=== PATIENT | female | born 1940 | race Caucasian/White ===

== ENCOUNTER → 2017-01-14 | Outpatient (REF) | payer MEDICARE ==
[2017-01-14 11:41] LABS: VITAMIN B12 LEVEL 563 PG/ML (247-911)
[2017-01-14 11:42] LABS: ALBUMIN 3.6 GM/DL (3.2-5.2); ALBUMIN/GLOBULIN RATIO 1.06 (1.00-1.93); ALKALINE PHOSPHATASE 64 U/L (45-117); ALT/SGPT 44 U/L (12-78); ANION GAP 6 MEQ/L (8-16); AST/SGOT 33 U/L (15-37); BILIRUBIN,TOTAL 0.5 MG/DL (0.2-1.0); BLOOD UREA NITROGEN 17 MG/DL (7-18); CALCIUM LEVEL 9.7 MG/DL (8.8-10.2); CARBON DIOXIDE LEVEL 31 MEQ/L (21-32); CHLORIDE LEVEL 104 MEQ/L (98-107); CHOLESTEROL LEVEL 194 MG/DL (<200); CREATININE FOR GFR 0.71 MG/DL (0.55-1.02); GLOMERULAR FILTRATION RATE > 60.0 (>39); GLUCOSE, FASTING 81 MG/DL (83-110); POTASSIUM SERUM 4.6 MEQ/L (3.5-5.1); SODIUM LEVEL 141 MEQ/L (136-145); TRIGLYCERIDES LEVEL 74 MG/DL (<150)
[2017-01-14 14:25] LABS: PRETREATED FOLATE FOR RBCFOL 15.9 NG/ML
== END ==
LOC: M SFHCPLAZ 08:59
PROVIDERS: ATTEND Family Medicine
DX: E78.5 Hyperlipidemia, unspecified (principal); E55.9 Vitamin D deficiency, unspecified; D75.89 Other specified diseases of blood and blood-forming organs

== ENCOUNTER → 2017-01-24 | Outpatient (CLI) | payer MEDICARE ==
[~2017-01-24] MED LIST: ADVI200C5 PO; ASPI81TA21 PO; ASPI81TA85 PO; CALCLIQ4 PO; CALCTAB75 PO; FERR324T2 PO; FOLI1TAB2; FOLI1TAB2 PO; HYDR200T3; HYDR200T3 PO; METH2.5TA; METH2.5TA PO; PANT40TA2 PO; PRAV80TA2; PRAV80TA2 PO; SULF500T2; SULF500T2 PO; VITA50003; VITA50003 PO
--- NOTE | 2017-01-24 16:15 | REP ---
ULTRASOUND SOFT TISSUES OF THE FEET: Real-time sonographic evaluation of the soft tissues of the feet performed in the region of a palpable abnormality along the plantar aspect of the right first toe. At this location, is an oval hypoechoic area of solid soft tissue measuring 3.1 x 2.6 x 1.1 cm. There is internal blood flow with Doppler color evaluation. This may simply represent fibrosis and callus formation. Clinical correlation suggested. A similar area is seen at the plantar aspect of the left first toe. Signed by Tony Dumont MD 01/24/2017 04:47 P
== END ==
LOC: M RAD 12:45
PROVIDERS: ATTEND Family Medicine
DX: R22.41 Localized swelling, mass and lump, right lower limb (principal)

== ENCOUNTER 2017-01-26 14:22 | Inpatient (IN) | payer MEDICARE ==
[~2017-01-26] VITALS: Ht 165.1 cm; Wt 76.9 kg
[~2017-01-26 14:22] MED LIST changes: -ADVI200C5 PO; -ASPI81TA21 PO; -ASPI81TA85 PO; -CALCLIQ4 PO; -CALCTAB75 PO; -FERR324T2 PO; -FOLI1TAB2; -FOLI1TAB2 PO; -HYDR200T3; -HYDR200T3 PO; +HYDROXYCHLOROQUINE 200 MG TAB PO SCH; -METH2.5TA; -METH2.5TA PO; -PANT40TA2 PO; -PRAV80TA2; -PRAV80TA2 PO; -SULF500T2; -SULF500T2 PO; -VITA50003; -VITA50003 PO
[2017-01-26] MEDS ORDERED: PRAV80TA2 (14:36)
[2017-01-26] MEDS ORDERED: ADVI200C5 PO (14:36)
[2017-01-26] MEDS ORDERED: CALCLIQ4 PO (14:36)
[2017-01-26] MEDS ORDERED: FOLI1TAB2 (14:36)
[2017-01-26] MEDS ORDERED: HYDR200T3 (14:36)
[2017-01-26] MEDS ORDERED: METH2.5TA (14:36)
[2017-01-26] MEDS ORDERED: VITA50003 (14:36)
[2017-01-26] MEDS ORDERED: SULF500T2 (14:36)
[2017-01-26] MEDS ORDERED: ASPI81TA85 PO (14:38)
[2017-01-26 15:01] LABS: BASO % 0.8 % (0.0-1.0); EOS # 0.2 K/mm3 (0.0-0.50); EOS % 3.2 % (0.0-3.0); LARGE UNSTAINED CELL # 0.1 K/mm3 (0.0-0.4); LARGE UNSTAINED CELL % 1.8 % (0.0-4.0); LYMPH # 1.4 K/mm3 (1.5-4.5); LYMPH % 22.5 % (24.0-44.0); MEAN CORPUSCULAR HEMOGLOBIN 31.7 pg (27.0-33.0); MEAN CORPUSCULAR HGB CONC 32.5 g/dl (32.0-36.5); MEAN CORPUSCULAR VOLUME 97.3 fl (80.0-96.0); MONO # 0.4 K/mm3 (0.0-0.8); MONO % 6.1 % (0.0-5.0); NEUTROPHILS # 3.9 K/mm3 (1.8-7.7); NEUTROPHILS % 65.6 % (36.0-66.0); PLATELET COUNT, AUTOMATED 261 k/mm3 (150-450); RED CELL DISTRIBUTION WIDTH 13.3 % (11.5-14.5); WHITE BLOOD COUNT 5.9 K/mm3 (4.0-10.0)
[2017-01-26 15:39] LABS: ANION GAP 7 MEQ/L (8-16); BLOOD UREA NITROGEN 28 MG/DL (7-18); CALCIUM LEVEL 9.5 MG/DL (8.8-10.2); CARBON DIOXIDE LEVEL 29 MEQ/L (21-32); CHLORIDE LEVEL 105 MEQ/L (98-107); CREATININE FOR GFR 0.74 MG/DL (0.55-1.02); GLOMERULAR FILTRATION RATE > 60.0 (>39); GLUCOSE, FASTING 98 MG/DL (83-110); SODIUM LEVEL 141 MEQ/L (136-145)
[2017-01-26] MEDS ORDERED: ISOVUE-370 76% 100ML VIAL (Q9967) As Ordered ONE (16:48)
[2017-01-26] MEDS ORDERED: NS 500 ML IV ONE (17:00)
[2017-01-26 17:38] LABS: INR 1.01
--- NOTE | 2017-01-26 18:09 | REP ---
CT ABDOMEN PELVIS WITH CONTRAST: 01/26/2017: Clinical history: Gastrointestinal bleeding. Technique: Bolus of 100 mL as Isovue-370 scanning through the abdomen pelvis with both coronal and sagittal reconstructions. Findings:CT abdomen: There is a mild dextrorotatory curvature of the thoracolumbar junction. There is a box-like hernia posteriorly on the left. There is a pectus excavatum present on the lateral hard hat diver view. This exaggerates the heart size. There is no pericardial thickening or effusion. There is atherosclerotic calcification of the lower thoracic and the entire abdominal aorta without aneurysm or dissection. No hiatal hernia. No hepatosplenomegaly or focal lesion nor biliary dilatation. Gallbladder shows no calcified stone or mass. Pancreas without mass or ductal dilatation. Adrenal glands were normal. Kidneys show function without obstruction, stone, mass or cyst. There is no periaortic or retroperitoneal pathologic sized lymphadenopathy. Small bowel loops and colon in the abdomen proper show no acute finding. There is some colonic interposition between the right lobe of the liver and anterior abdominal wall. Lung window review of all CT images shows no sign of perforation or abscess in the abdomen or pelvis. No free air. Bone windows show diffuse degenerative disc disease with a few millimeters of retrolisthesis of L4 on 5 and narrowing and vacuum phenomenon with L4-5, L2-3, and L1-2. The L5-S1 levels showing mild narrowing and preservation of the L3-4 disc level. There is no acute compression fracture. I see no spondylolysis or spondylolisthesis. There is atherosclerotic calcification in the aorta. No posterior rib abnormalities. Lower thoracic levels intact. CT pelvis: There is no CT evidence of colitis, diverticulitis, stricture. The small bowel loops are mostly fluid-filled but not dilated. No inflammatory changes that would suggests appendicitis or pericecal mesenteric lymphadenopathy. There were a few scattered diverticula diverticulitis. Small bowel loops and colon grossly intact. The bony hips, pelvis, sacrum and SI joints show some degenerative change without destructive lesion or fracture. Small bowel loops were intact with fluid throughout, but no dilatation. The colon shows stool and gas from the distal left colon through rectosigmoid. There is no sign of colitis or diverticulitis. The uterus is difficult to evaluate but no gross mass. No adnexal mass or pelvic free fluid. The cecum shows no inflammatory changes, no pelvic adenopathy, inguinal adenopathy or inguinal hernia. No ventral hernia. Impression: 1. No CT evidence of ascites, adenopathy or free air. No definite colitis, diverticulitis or mass. 2. Aortic arch, descending aorta and upper abdominal calcification in the branches without aneurysm. No dissection. 3. Degenerative changes throughout the spine and pelvis, mild to moderate. 4. No other significant or acute finding. Signed by Pete Jones MD 01/27/2017 02:48 P
[2017-01-26] MEDS ORDERED: CALCTAB75 PO (19:41)
[2017-01-26] MEDS ORDERED: SULF500T2 PO (19:45)
[2017-01-26] MEDS ORDERED: ASPI81TA21 PO (19:45)
[2017-01-26] MEDS ORDERED: PRAV80TA2 PO (19:45)
[2017-01-26] MEDS ORDERED: VITA50003 PO (19:45)
[2017-01-26] MEDS ORDERED: HYDR200T3 PO (19:45)
[2017-01-26] MEDS ORDERED: METH2.5TA PO (19:45)
[2017-01-26] MEDS ORDERED: FOLI1TAB2 PO (19:45)
[2017-01-26 19:47] LABS: BASO % 0.5 % (0.0-1.0); EOS # 0.2 K/mm3 (0.0-0.50); EOS % 2.1 % (0.0-3.0); LARGE UNSTAINED CELL # 0.1 K/mm3 (0.0-0.4); LYMPH # 1.4 K/mm3 (1.5-4.5); LYMPH % 18.3 % (24.0-44.0); MEAN CORPUSCULAR HEMOGLOBIN 31.5 pg (27.0-33.0); MEAN CORPUSCULAR HGB CONC 32.3 g/dl (32.0-36.5); MEAN CORPUSCULAR VOLUME 97.6 fl (80.0-96.0); MONO # 0.4 K/mm3 (0.0-0.8); MONO % 6.2 % (0.0-5.0); NEUTROPHILS # 5.1 K/mm3 (1.8-7.7); NEUTROPHILS % 71.9 % (36.0-66.0); PLATELET COUNT, AUTOMATED 261 k/mm3 (150-450); RED CELL DISTRIBUTION WIDTH 13.2 % (11.5-14.5); WHITE BLOOD COUNT 7.1 K/mm3 (4.0-10.0)
[2017-01-26] MEDS ORDERED: sulfaSALAzine 500 MG TABEC PO SCH (21:00)
[2017-01-26] MEDS ORDERED: ACETAMINOPHEN TAB 650MG DOSE (2X325MG) PO PRN (21:30)
[2017-01-26] MEDS ORDERED: ONDANSETRON 4MG/2ML VIAL (J2405) IV PRN (21:30)
[2017-01-26 22:00] VITALS: BP 137/63
[2017-01-26] MEDS: PRAVASTATIN 20 MG TAB PO SCH (23:58)
[2017-01-27] VITALS (18 sets, daily range): BP systolic 102–147; BP diastolic 36–67
[2017-01-27] MEDS: HYDROXYCHLOROQUINE 200 MG TAB PO SCH ×3 (00:02→21:39)
--- NOTE | 2017-01-27 00:19 | HPE ---
DATE OF ADMISSION: 01/26/2017 PRIMARY CARE PROVIDER: Dr. Booth CHIEF COMPLAINT: Bloody bowel movements. HISTORY OF PRESENT ILLNESS: Ms. Green is a 76-year-old female with a past medical history of rheumatoid arthritis, diverticulosis, and hemorrhoids, who presented to the emergency department (ED) today with complaint of blood in her stool. Episode started last night. Patient's normal bowel habits are more on the constipated end. Usually will go on 3-4 days without bowel movements. Last night she initially felt cramping and thought that she had diarrhea; however, after looking at the toilet, she saw mixture of bright red blood with black-color stool. States the amount was significant. It filled up the whole toilet. It required two flushes to completely clear. She since that episode had two more bouts of hematochezia mixed with melena, most recent one in the ED tonight, each episode with similar amount of blood. Associated with lightheadedness, dizziness. No chest pain, palpitations, shortness of breath, headaches. At baseline, the patient says that she has hemorrhoids and occasionally will see some bright red blood mixed on her toilet paper but this amount is a lot more significant compared to her normal. Of note, she recently thought that she had flare-up of her arthritis and previously was only taking Advil once a week but in the last month has been taking two tablets of Advil every day. Reports good by mouth intake. There have been no changes to her medication besides Advil frequency. PAST MEDICAL HISTORY: 1. Rheumatoid arthritis. 2. Obstructive sleep apnea, compliant with continuous positive airway pressure (CPAP). 3. Recurrent bronchiectasis secondary to rheumatoid arthritis. Follows with shaping machine tender in [place]. 4. Palpitations. 5. Paroxysmal atrial fibrillation, though the patient herself denies this. 6. Chronic leukopenia. 7. Allergic rhinitis. 8. Rupture of Spencer's cyst. 9. Hyperparathyroidism secondary to hyperactive adenoma. 10. Adenoma polyp. 11. Escherichia (E) coli urinary tract infection (UTI) and pseudomonas sputum. 12. Osteoporosis. 13. Hyperlipidemia. SURGICAL HISTORY: 1. Colonoscopy in 2016. Non-bleeding internal hemorrhoids, diverticulosis. 2. Parathyroidectomy. 3. Hemorrhoidectomy. 4. Ovarian cyst removal. ALLERGIES: CELEBREX, GERD-like symptoms. HOME MEDICATIONS: - ibuprofen 400 mg every 6 hours as needed. She has been taking this every day for the last month. - aspirin 81 mg at bedtime - calcium 500 plus vitamin D 400, one tablet by mouth daily - vitamin D 50,000 every 2 weeks, on Tuesday - folic acid 1 mg by mouth daily - hydroxychloroquine 200 mg by mouth twice a day - methotrexate 17.5 mg by mouth weekly on Fridays - Pravachol 80 mg at bedtime - sulfasalazine 1000 mg by mouth twice a day FAMILY HISTORY: Father from heart aneurysm. Mother from complications from Alzheimer's disease in her 90s. SOCIAL HISTORY: The patient is a never-smoker. Drinks a glass of wine maybe once a year. No drug use. 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 Currently lives at home with her with one dog. Lifetime travels include to [place] and [place]. No asbestos or TB exposure. REVIEW OF SYSTEMS: CONSTITUTIONAL: Denies fevers, chills, rigors, weight changes. HENT: Positive for lightheadedness, dizziness but no episodes of passing out. No problem with difficulty with speech and swallow. No epistaxis. EYES: No blurry vision, double vision, transient vision loss. CARDIOVASCULAR: Denies chest pain, paroxysmal nocturnal dyspnea, pillow orthopnea, lower extremity edema. PULMONARY: Denies shortness of breath, productive cough, hemoptysis. GASTROINTESTINAL: As above. GENITOURINARY: No dysuria, frequency or hematuria. MUSCULOSKELETAL: No bone, muscle, joint pain. NEUROLOGICAL: No paralysis, paresthesia, headaches. ENDOCRINE: Negative for diabetes, or thyroid disease. LYMPHATICS: No lumps, bumps, or swelling anywhere in neck, axilla, or groin. HEMATOLOGY: No abnormal bleeding or bruising. SKIN: No new rashes. PSYCHIATRIC: No history of anxiety/depression. PHYSICAL EXAMINATION: VITAL SIGNS: Blood pressure 119/79, heart rate 76, temperature 97.3, respiration rate 16, pulse oximetry 99% on room air. Her fastest heart rate was 115 when she first presented. Orthostatic vital signs are negative. Pulse oximetry 99% on room air. GENERAL: Patient is sitting in bed, comfortable. No acute distress. She is alert , awake, oriented times three, pleasant, cooperative. at bedside. HEENT: Normocephalic, atraumatic. Moist oral mucosa. Good dentition. Nasal septum midline. Eyes: Extraocular movement intact. Pupils equal and reactive to light. NECK: Supple. Trachea midline. No jugular venous distention (JVD). CHEST: Symmetric chest rise. No accessory muscle use. Breath sounds were diminished but clear bilaterally. HEART: Regular rate and rhythm, S1, S2 present. ABDOMEN: Soft, nontender, nondistended. Bowel sounds present. No guarding. No rebound. No peritoneal signs. No organomegaly. GENITOURINARY: Rectal exam was deferred, as she did have gross evidence of blood in her stool witnessed by staff. EXTREMITIES: There is trace pitting edema, bilateral lower extremities. NEUROLOGIC: Sensory intact. Strength 5/5 in all extremities. No focal deficits appreciated. She is alert, awake, oriented times three. PSYCHIATRIC: Normal affect, pleasant, cooperative. SKIN: No obvious rashes. LABORATORY DATA: WBC 7.1. Hemoglobin initially was 10.3; repeat was later 9.5. Her baseline hemoglobin was 13.4 back in July 2016. She did have a hematocrit last month that was 38.7. Platelets 261. Sodium 141, potassium 4, chloride 105, carbon dioxide 29, BUN 28, creatinine 0.74, glucose 98, lactic acid 0.9, calcium 9.5. Coagulation studies show PT 13.4 , INR 1.01, PTT 26.5. Blood culture is pending. CT abdomen and pelvis reports no evidence of ascites, adenopathy, or free air. No definitive colitis, diverticulitis, or mass. Aortic arch, descending aorta, and upper abdominal calcification without aneurysm. No dissection. Degenerative changes throughout the spine and pelvis, mild to moderate. No significant acute finding. EKG shows sinus rhythm with ventricular rate of 85. IMPRESSION AND PLAN: Ms. Green is a 76-year-old female with history of diverticulosis, rheumatoid arthritis, on chronic nonsteroidal anti-inflammatory drugs (NSAIDs) use, and hemorrhoids, who presented to the emergency department (ED) tonight with hematochezia and melena. 1. Acute symptomatic blood loss anemia. Possible causes include NSAID use, diverticulosis, hemorrhoids, ulcer versus arteriovenous (AV) malformation. Because she continues to drop her hemoglobin and hematocrit, we have requested for blood consent, and she has agreed for blood transfusion. She continues to be symptomatic and will be receiving 1 unit of packed red blood cells. She does not have a history of congestive heart failure (CHF) and will be placed on lactated Ringer, 120 mL per hour, and monitor fluid status. Will discontinue her NSAID along with aspirin. For now she can be in clear liquid diet, but diet can be changed based on her clinical condition. Will continue to monitor closely on monitored floor. We have started her on Protonix 40 intravenous (IV) twice a day. 2. Rheumatoid arthritis. Continue her home dose methotrexate, hydroxychloroquine. Hold her NSAIDs due to acute gastrointestinal (GI) blood loss. 3. Obstructive sleep apnea (MELISSA). Have recommended patient to bring in her home CPAP. MELISSA protocol. 4. Hyperlipidemia. Continue home dose Pravachol. 5. Vitamin D deficiency. Continue vitamin D supplementation. 6. Deep vein thrombosis (DVT) prophylaxis. Sequential compression devices (SCDs), thromboembolic deterrents (TEDs). No pharmacological intervention secondary to acute blood loss anemia. DISPOSITION: Due to the patient's condition, we expect her stay to be greater than 2 midnights. My preceptor for this patient encounter was Dr. Claudia Blair. The preceptor was physically present in the building during the encounter and was fully available as needed. All aspects of the patient interview, examination, medical decision making process, and medical care plan development were reviewed and approved by the preceptor. The preceptor is aware and concurs with the plan as stated in the body of this note and will attest to such by his/her co-signature. I have both independently examined this patient as well as reviewed the H&P. I have discussed in detail with the resident the findings and plan of treatment as documented in the residents note. I will continue to follow the patient and offer further guidance to the patients care as necessary during this hospital stay. Claudia ALBERTO
[2017-01-27] MEDS: PANTOPRAZOLE 40MG INJ (PROTONIX) (C9113) IV SCH ×3 (00:47→21:39)
[2017-01-27] MEDS: LR 1,000 ML IV SCH ×2 (01:05→09:35)
[2017-01-27 05:57] LABS: MEAN CORPUSCULAR HEMOGLOBIN 31.4 pg (27.0-33.0); MEAN CORPUSCULAR VOLUME 95.1 fl (80.0-96.0); RED CELL DISTRIBUTION WIDTH 13.8 % (11.5-14.5); WHITE BLOOD COUNT 5.5 K/mm3 (4.0-10.0)
[2017-01-27 06:00] LABS: ANION GAP 7 MEQ/L (8-16); BLOOD UREA NITROGEN 17 MG/DL (7-18); CALCIUM LEVEL 8.5 MG/DL (8.8-10.2); CARBON DIOXIDE LEVEL 26 MEQ/L (21-32); CHLORIDE LEVEL 110 MEQ/L (98-107); CREATININE FOR GFR 0.57 MG/DL (0.55-1.02); GLOMERULAR FILTRATION RATE > 60.0 (>39); GLUCOSE, FASTING 83 MG/DL (83-110); MAGNESIUM LEVEL 1.9 MG/DL (1.8-2.4); POTASSIUM SERUM 3.9 MEQ/L (3.5-5.1); SODIUM LEVEL 143 MEQ/L (136-145)
[2017-01-27] MEDS: FOLIC ACID 1 MG TAB PO SCH (08:09)
[2017-01-27] MEDS: SENOKOT S TAB PO SCH ×2 (08:09→21:39)
--- NOTE | 2017-01-27 12:33 | IPNPDOC ---
Subjective Date Seen The patient was seen on 01/27/17. Subjective Chief Complaint/HPI The patient is a 76-year-old female admitted with a reason for visit of Acute Blood Loss Anemia;Lower Gi Bleed. Events since last encounter Admitted for GI bleed. Continues with dark, tarry stools and clots with bright red blood from rectum. Constitutional: Reports: Fatigue, Lethargy, Denies: Chills, Fever, Night Sweats Pulmonary: Denies: Cough, Dyspnea Cardiovascular: Reports: Lt Headedness, Denies: Chest Pain, Palpitations Gastrointestinal: Reports: Abdominal Pain (occasional cramping. ), Denies: Constipation, Diarrhea, Nausea, Vomiting Genitourinary: Denies: Dysuria, Frequency, Incontinence, Retention Objective Physical Examination General Exam: Positive: Alert, No Acute Distress Eye Exam: Positive: Conjunctiva & lids normal, EOMI, PERRLA, Negative: Sclera icteric Neck Exam: Positive: Supple, Negative: JVD, thyromegaly Chest Exam: Positive: Clear to auscultation, Normal air movement Heart Exam: Positive: Normal S1, Normal S2, Rate Normal, Regular Rhythm, Negative: Murmurs, Rubs Telemetry: Positive: No significant arrhythmia, Negative: AV Block, Asystole, Atrial fibrillation, Bradycardia, Other Telemetry:, PACs, PVCs, Pause, SV Tach, Sinus, Tachycardia Female Exam: Positive: Nl Ext Genitalia, Negative: Discharge, Lesions, Odor, Tenderness Extremity Exam: Positive: Normal pulses, Negative: Clubbing, Cyanosis, Edema Assessment /Plan Problems (1) Lower GI bleed Status: Acute Problem Specific Plan: Consult Specialist Problem Text: continues with melena in presence of Hgb trending down. Previous patient of Dr. Bhatt. Call placed. Currently on clear liquids. will make NPO pre-procedure. (2) Acute blood loss anemia Status: Acute Problem Specific Plan: Consult Specialist (3) Hemorrhoids Status: Acute Problem Specific Plan: Consult Specialist (4) Rheumatoid arthritis Status: Chronic Problem Text: Sulfasalazine and methotrexate on hold (5) MELISSA (obstructive sleep apnea) Status: Chronic Problem Text: may bring in own CPAP Plan/VTE VTE Prophylaxis Ordered?: No VTE Exclusion Pharmacological: Active Bleeding VS, I&O, 24H, Fishbone Vital Signs/I&O Vital Signs Date Time Temp Pulse Resp B/P Pulse Ox O2 Delivery O2 Flow Rate FiO2 01/27/17 08:10 98.0 63 18 109/51 96 Room Air 01/27/17 03:26 2.0 01/26/17 16:40 99 I&O- Last 24 Hours up to 6 AM 01/27/17 06:00 Intake Total 480 ml Output Total 1000 ml Balance -520 ml Laboratory Data 24H LABS Laboratory Tests 2 01/26/17 14:47: Anion Gap 7L, White Blood Count 5.9, Red Blood Count 3.26L, Hemoglobin 10.3L, Hematocrit 31.7L, Mean Corpuscular Volume 97.3H, Mean Corpuscular Hemoglobin 31.7, Mean Corpuscular Hemoglobin Concent 32.5, Red Cell Distribution Width 13.3 , Platelet Count 261, Neutrophils (%) (Auto) 65.6, Lymphocytes (%) (Auto) 22.5L , Monocytes (%) (Auto) 6.1H, Eosinophils (%) (Auto) 3.2H, Basophils (%) (Auto) 0.8, Neutrophils # (Auto) 3.9, Lymphocytes # (Auto) 1.4L, Monocytes # (Auto) 0.4 , Eosinophils # (Auto) 0.2, Basophils # (Auto) 0.0, Blood Urea Nitrogen 28H, Creatinine 0.74, Sodium Level 141, Potassium Level 4.0, Chloride Level 105, Carbon Dioxide Level 29, Calcium Level 9.5, Glomerular Filtration Rate > 60.0, Large Unclassified Cells # 0.1, Large Unclassified Cells % 1.8 01/26/17 16:59: Activated Partial Thromboplast Time 26.5L, Prothromb Time International Ratio 1.01, Prothrombin Time 13.4 01/26/17 19:22: Lactic Acid Level 0.9 01/26/17 19:37: White Blood Count 7.1, Red Blood Count 3.00L, Hemoglobin 9.5L, Hematocrit 29.3L , Mean Corpuscular Volume 97.6H, Mean Corpuscular Hemoglobin 31.5, Mean Corpuscular Hemoglobin Concent 32.3, Red Cell Distribution Width 13.2, Platelet Count 261, Neutrophils (%) (Auto) 71.9H, Lymphocytes (%) (Auto) 18.3L, Monocytes (%) (Auto) 6.2H, Eosinophils (%) (Auto) 2.1, Basophils (%) (Auto) 0.5 , Neutrophils # (Auto) 5.1, Lymphocytes # (Auto) 1.4L, Monocytes # (Auto) 0.4, Eosinophils # (Auto) 0.2, Basophils # (Auto) 0.0, Large Unclassified Cells # 0.1 , Large Unclassified Cells % 1.0 01/27/17 05:21: Anion Gap 7L, Blood Urea Nitrogen 17, Creatinine 0.57, Sodium Level 143, Potassium Level 3.9, Chloride Level 110H, Carbon Dioxide Level 26, Calcium Level 8.5L, Glomerular Filtration Rate > 60.0, Magnesium Level 1.9 CBC/BMP Laboratory Tests 01/26/17 14:47 Calcium Level 9.5, Red Blood Count 3.26 L, Mean Corpuscular Volume 97.3 H, Mean Corpuscular Hemoglobin 31.7, Mean Corpuscular Hemoglobin Concent 32.5, Red Cell Distribution Width 13.3, Neutrophils (%) (Auto) 65.6, Lymphocytes (%) (Auto) 22.5 L, Monocytes (%) (Auto) 6.1 H, Eosinophils (%) (Auto) 3.2 H, Basophils (%) (Auto) 0.8, Neutrophils # (Auto) 3.9, Lymphocytes # (Auto) 1.4 L, Monocytes # ( Auto) 0.4, Eosinophils # (Auto) 0.2, Basophils # (Auto) 0.0 01/26/17 19:37 Red Blood Count 3.00 L, Mean Corpuscular Volume 97.6 H, Mean Corpuscular Hemoglobin 31.5, Mean Corpuscular Hemoglobin Concent 32.3, Red Cell Distribution Width 13.2, Neutrophils (%) (Auto) 71.9 H, Lymphocytes (%) (Auto) 18.3 L, Monocytes (%) (Auto) 6.2 H, Eosinophils (%) (Auto) 2.1, Basophils (%) ( Auto) 0.5, Neutrophils # (Auto) 5.1, Lymphocytes # (Auto) 1.4 L, Monocytes # ( Auto) 0.4, Eosinophils # (Auto) 0.2, Basophils # (Auto) 0.0 01/27/17 01:54 01/27/17 05:21 Calcium Level 8.5 L, Red Blood Count 2.88 L, Mean Corpuscular Volume 95.1, Mean Corpuscular Hemoglobin 31.4, Mean Corpuscular Hemoglobin Concent 33.0, Red Cell Distribution Width 13.8 01/27/17 10:55 Microbiology Microbiology 01/26/17 Blood Culture, Received Pending Valentina Roque [facility] Jan 27, 2017 12:33
--- NOTE | 2017-01-27 12:34 | ECGEPIP ---
Stationary ECG Study [facility] - ED Test Date: 2017-01-26 Pat Name: MELCHOR VELÁSQUEZ Department: Room: [place] [address] Gender: F Marble Installer: luli : 1940 Requested By: Juan Antonio Jacques PA-C Order Number: [id number] Reading MD: Carolyn Dickson Measurements Intervals [place] Rate: 85 P: 73 OK: 155 QRS: -4 QRSD: 90 T: 45 QT: 360 QTc: 429 Interpretive Statements SINUS RHYTHM LOW QRS VOLTAGE IN PRECORDIAL LEADS INFERIOR MYOCARDIAL INFARCTION, PROBABLY OLD WITH POSTERIOR EXTENSION INCREASED RATE 02/11/15 Electronically Signed On 01-27-2017 12:34:12 EDT by Carolyn Dickson
[2017-01-27] MEDS ORDERED: GOLYTELY SOLN 4000 ML BTL PO ONE (18:00)
[2017-01-27] MEDS: PRAVASTATIN 20 MG TAB PO SCH (21:39)
[2017-01-28] VITALS (11 sets, daily range): BP systolic 91–128; BP diastolic 50–65
[2017-01-28 05:37] LABS: ANION GAP 7 MEQ/L (8-16); BLOOD UREA NITROGEN 11 MG/DL (7-18); CALCIUM LEVEL 8.5 MG/DL (8.8-10.2); CARBON DIOXIDE LEVEL 29 MEQ/L (21-32); CHLORIDE LEVEL 107 MEQ/L (98-107); CREATININE FOR GFR 0.67 MG/DL (0.55-1.02); GLOMERULAR FILTRATION RATE > 60.0 (>39); GLUCOSE, FASTING 89 MG/DL (83-110); MAGNESIUM LEVEL 1.8 MG/DL (1.8-2.4); POTASSIUM SERUM 3.6 MEQ/L (3.5-5.1); SODIUM LEVEL 143 MEQ/L (136-145)
[2017-01-28 05:40] LABS: MEAN CORPUSCULAR HEMOGLOBIN 30.6 pg (27.0-33.0); MEAN CORPUSCULAR HGB CONC 32.6 g/dl (32.0-36.5); RED CELL DISTRIBUTION WIDTH 15.4 % (11.5-14.5); WHITE BLOOD COUNT 7.4 K/mm3 (4.0-10.0)
[2017-01-28] MEDS ORDERED: LIDOCAINE 2% INJ 100 MG/5 ML SDV (FOR ANES.) As Ordered ONE (07:41)
[2017-01-28] MEDS ORDERED: PROPOFOL 200 MG/20 ML VIAL As Ordered ONE ×2 (07:41→07:50)
[2017-01-28] MEDS ORDERED: fentaNYL 100 MCG/2 ML INJECTION (J3010) As Ordered ONE (07:42)
[2017-01-28] MEDS ORDERED: ePHEDrine SULFATE 25 MG/5 ML(5MG/ML) SYRINGE As Ordered ONE (07:58)
[2017-01-28] MEDS ORDERED: PHENYLephrine HCL 500 MCG/5 ML (100MCG/ML) SYRINGE (J2370) As Ordered ONE (08:02)
--- NOTE | 2017-01-28 08:17 | ROOR ---
Patient Name: Maxine Green Procedure Date: 01/28/2017 7:36 AM Date of : 1940 Age: 76 Room: [facility] Gender: Female Note Status: Finalized Procedure: Upper GI endoscopy Indications: Active gastrointestinal bleeding Providers: Garett Bhatt MD Referring MD: 2. Inpatient 2. Inpatient Requesting Provider: Medicines: Monitored Anesthesia Care Complications: No immediate complications. Procedure: Pre-Anesthesia Assessment: - The heart rate, respiratory rate, oxygen saturations, blood pressure, adequacy of pulmonary ventilation, and response to care were monitored throughout the procedure. The Endoscope was introduced through the mouth, and advanced to the second part of duodenum. The upper GI endoscopy was accomplished without difficulty. The patient tolerated the procedure well. Findings: The Z-line was regular and was found 40 cm from the incisors. A small hiatal hernia was present. No other significant abnormalities were identified in a careful examination of the stomach. The exam of the duodenum was otherwise normal. Impression: - Z-line regular, 40 cm from the incisors. - Small hiatal hernia. - No specimens collected. - The examination was otherwise normal. Recommendation: - Patient has a contact number available for emergencies. The signs and symptoms of potential delayed complications were discussed with the patient. Return to normal activities tomorrow. Written discharge instructions were provided to the patient. - Advance diet as tolerated. - Continue present medications. - [facility] for [facility]. - The findings and recommendations were discussed with the patient's family. Garett Bhatt MD Garett Bhatt MD 01/28/2017 8:16:48 AM This report has been signed electronically. Number of Addenda: 0 Note Initiated On: 01/28/2017 7:36 AM Estimated Blood Loss: Estimated blood loss: none.
--- NOTE | 2017-01-28 08:21 | ROOR ---
Patient Name: Maxine Green Procedure Date: 01/28/2017 7:37 AM Date of : 1940 Age: 76 Room: [facility] Gender: Female Note Status: Finalized Procedure: Colonoscopy to Cecum + Hemoclips Indications: Rectal bleeding Providers: Garett Bhatt MD Referring MD: 2. Inpatient 2. Inpatient Requesting Provider: Medicines: Monitored Anesthesia Care Complications: No immediate complications. Procedure: Pre-Anesthesia Assessment: - The heart rate, respiratory rate, oxygen saturations, blood pressure, adequacy of pulmonary ventilation, and response to care were monitored throughout the procedure. The Colonoscope was introduced through the anus and advanced to the cecum, identified by appendiceal orifice and ileocecal valve. The colonoscopy was performed without difficulty. The patient tolerated the procedure well. The quality of the bowel preparation was good. Findings: The perianal and digital rectal examinations were normal. Non-bleeding internal hemorrhoids were found during retroflexion. The hemorrhoids were small and Grade I (internal hemorrhoids that do not prolapse). Multiple medium-mouthed diverticula were found in the recto-sigmoid colon, sigmoid colon and descending colon. To stop active bleeding, three hemostatic clips were successfully placed (MR conditional). There was no bleeding at the end of the procedure. No other significant abnormalities were identified in a careful examination of the remainder of the colon. Impression: - Non-bleeding internal hemorrhoids. - Diverticulosis in the recto-sigmoid colon, in the sigmoid colon and in the descending colon. Clips (MR conditional) were placed. - No specimens collected. - The exam was otherwise normal to the cecum. Recommendation: - Patient has a contact number available for emergencies. The signs and symptoms of potential delayed complications were discussed with the patient. Return to normal activities tomorrow. Written discharge instructions were provided to the patient. - High fiber diet. - Return patient to [facility] for ongoing care. - The findings and recommendations were discussed with the patient's family. Garett Bhatt MD Garett Bhatt MD 01/28/2017 8:20:27 AM This report has been signed electronically. Number of Addenda: 0 Note Initiated On: 01/28/2017 7:37 AM Estimated Blood Loss: Estimated blood loss: none.
[2017-01-28] MEDS ORDERED: METHOTREXATE 2.5 MG TAB (J8610) PO SCH (09:00)
[2017-01-28] MEDS: SENOKOT S TAB PO SCH ×2 (09:28→20:27)
[2017-01-28] MEDS: PANTOPRAZOLE 40MG INJ (PROTONIX) (C9113) IV SCH ×2 (09:28→20:27)
[2017-01-28] MEDS: FOLIC ACID 1 MG TAB PO SCH (09:29)
[2017-01-28] MEDS: HYDROXYCHLOROQUINE 200 MG TAB PO SCH ×2 (09:29→20:27)
--- NOTE | 2017-01-28 10:43 | IPNPDOC ---
Subjective Date Seen The patient was seen on 01/28/17. Subjective Chief Complaint/HPI The patient is a 76-year-old female admitted with a reason for visit of Acute Blood Loss Anemia;Lower Gi Bleed. Events since last encounter S/p colonoscopy with Dr. Bhatt. Please see his report from more information. Has had soft BP post operatively. Constitutional: Denies: Chills, Fever, Night Sweats Pulmonary: Denies: Cough, Dyspnea Cardiovascular: Reports: Lt Headedness, Denies: Chest Pain, Palpitations Gastrointestinal: Denies: Nausea Genitourinary: Denies: Dysuria, Frequency Psych: Reports: Mood Normal Objective Physical Examination General Exam: Positive: Alert, No Acute Distress Eye Exam: Positive: Conjunctiva & lids normal, EOMI, PERRLA, Negative: Sclera icteric Neck Exam: Positive: Supple, Negative: JVD, thyromegaly Chest Exam: Positive: Clear to auscultation, Normal air movement Heart Exam: Positive: Normal S1, Normal S2, Rate Normal, Regular Rhythm, Negative: Murmurs, Rubs Telemetry: Positive: No significant arrhythmia, Negative: AV Block, Asystole, Atrial fibrillation, Bradycardia, Other Telemetry:, PACs, PVCs, Pause, SV Tach, Sinus, Tachycardia Female Exam: Positive: Nl Ext Genitalia, Negative: Discharge, Lesions, Odor, Tenderness Extremity Exam: Positive: Normal pulses, Negative: Clubbing, Cyanosis, Edema Assessment /Plan Problems (1) Lower GI bleed Status: Acute Problem Specific Plan: Consult Specialist Problem Text: Received 1 unit RBC yesterday. s/p colonoscopy. Tolerating clear liquids today. Will give NS 500 cc bolus x 1 for hypotension. . (2) Acute blood loss anemia Status: Acute Problem Specific Plan: Consult Specialist (3) Hemorrhoids Status: Acute Problem Specific Plan: Consult Specialist (4) Rheumatoid arthritis Status: Chronic Problem Text: Sulfasalazine and methotrexate on hold (5) MELISSA (obstructive sleep apnea) Status: Chronic Problem Text: may bring in own CPAP Plan/VTE VTE Prophylaxis Ordered?: No VTE Exclusion Pharmacological: Active Bleeding Plan Attending note: I saw and evaluated the patient, and agree with the plan of care as discussed and documented above. Patient has been stable since colonoscopy and clipping of bridging veins of diverticuli. Hemoglobin has been stable, and patient is not reporting any ongoing bleeding. She will need to be monitored for a few more days to ensure that the bleeding does not return per GI recommendations, however does not need continued progressive care. Transfer to floor. Sheldon Barry MD VS, I&O, 24H, [facility] Vital Signs/I&O Vital Signs Date Time Temp Pulse Resp B/P Pulse Ox O2 Delivery O2 Flow Rate FiO2 01/28/17 09:20 97.6 87 20 98/56 96 Room Air 01/27/17 03:26 2.0 01/26/17 16:40 99 I&O- Last 24 Hours up to 6 AM 01/28/17 06:00 Intake Total 831 ml Output Total 2300 ml Balance -1469 ml Laboratory Data 24H LABS Laboratory Tests 2 01/28/17 05:11: Anion Gap 7L, Blood Urea Nitrogen 11, Creatinine 0.67, Sodium Level 143, Potassium Level 3.6, Chloride Level 107, Carbon Dioxide Level 29, Calcium Level 8.5L, Glomerular Filtration Rate > 60.0, Magnesium Level 1.8 CBC/BMP Laboratory Tests 01/27/17 10:55 01/27/17 17:23 01/28/17 00:26 01/28/17 05:11 Calcium Level 8.5 L, Red Blood Count 3.21 L, Mean Corpuscular Volume 94.0, Mean Corpuscular Hemoglobin 30.6, Mean Corpuscular Hemoglobin Concent 32.6, Red Cell Distribution Width 15.4 H Microbiology Microbiology 01/26/17 Blood Culture - Preliminary, Resulted No growth after 24 hours . All specim... Valentina Roque Jan 28, 2017 10:43 SHELDON BARRY MD Jan 28, 2017 15:55
[2017-01-28] MEDS ORDERED: NS 500 ML IV ONE (11:15)
[2017-01-28] MEDS: PRAVASTATIN 20 MG TAB PO SCH (20:26)
[2017-01-29 06:00] VITALS: BP_SYST 102; BP_SYST 103; BP_SYST 110; BP_DIAS 54; BP_DIAS 55; BP_DIAS 59
[2017-01-29 06:31] LABS: MEAN CORPUSCULAR HEMOGLOBIN 30.8 pg (27.0-33.0); MEAN CORPUSCULAR HGB CONC 32.2 g/dl (32.0-36.5); MEAN CORPUSCULAR VOLUME 95.8 fl (80.0-96.0); RED CELL DISTRIBUTION WIDTH 15.2 % (11.5-14.5); WHITE BLOOD COUNT 5.9 K/mm3 (4.0-10.0)
[2017-01-29 06:51] LABS: ANION GAP 8 MEQ/L (8-16); BLOOD UREA NITROGEN 7 MG/DL (7-18); CALCIUM LEVEL 8.6 MG/DL (8.8-10.2); CARBON DIOXIDE LEVEL 26 MEQ/L (21-32); CHLORIDE LEVEL 110 MEQ/L (98-107); CREATININE FOR GFR 0.63 MG/DL (0.55-1.02); GLOMERULAR FILTRATION RATE > 60.0 (>39); GLUCOSE, FASTING 84 MG/DL (83-110); MAGNESIUM LEVEL 1.9 MG/DL (1.8-2.4); POTASSIUM SERUM 3.6 MEQ/L (3.5-5.1); SODIUM LEVEL 144 MEQ/L (136-145)
[2017-01-29] MEDS: HYDROXYCHLOROQUINE 200 MG TAB PO SCH ×2 (08:14→21:02)
[2017-01-29] MEDS: PANTOPRAZOLE 40MG INJ (PROTONIX) (C9113) IV SCH ×2 (08:14→21:02)
[2017-01-29] MEDS: FOLIC ACID 1 MG TAB PO SCH (08:15)
[2017-01-29] MEDS: SENOKOT S TAB PO SCH ×2 (08:18→21:02)
[2017-01-29] MEDS ORDERED: VITAMIN D 50,000 UNITS CAPSULE (ERGOCALCIFEROL 1.25MG) PO SCH (09:00)
[2017-01-29 12:59] VITALS: BP 112/60
[2017-01-29 14:00] VITALS: BP_SYST 113; BP_SYST 119; BP_SYST 124; BP_DIAS 54; BP_DIAS 59; BP_DIAS 61
[2017-01-29] MEDS: PRAVASTATIN 20 MG TAB PO SCH (21:02)
[2017-01-29 22:00] VITALS: BP_SYST 122; BP_SYST 129; BP_SYST 135; BP_DIAS 56; BP_DIAS 60; BP_DIAS 61
[2017-01-30] VITALS (7 sets, daily range): BP systolic 96–149; BP diastolic 50–66
--- NOTE | 2017-01-30 06:33 | IPN ---
DATE OF SERVICE: 01/29/2017 The patient is seen on [facility]. She is a lady with rheumatoid arthritis who had lower gastrointestinal (GI) bleeding. Yesterday, she underwent upper and lower endoscopy and several clips were placed in the colon. Today, she is not having any coughing or shortness of breath. No chest pains or palpitations. She did feel somewhat lightheaded on standing up earlier, although the nurse checked orthostatic vital signs and these were fine. Her rheumatoid medications have been held with the exception of the hydroxychloroquine. She has not noticed any rectal bleeding today. She did have a bowel movement. Not having any edema. Current medications call for her to receive vitamin D, folic acid, Senokot-S, as needed Zofran. She is getting intravenous (IV) pantoprazole, pravastatin and the hydroxychloroquine. On examination, her temperature is 98.7, blood pressure 124/59, pulse 82 and regular, oxygen saturation is 92%. She is alert, pleasant, cooperative, not in any distress. Her eyes are clear. Speech is clear. Mucous membranes are moist. There are no neck masses, tenderness or adenopathy. No carotid bruits. Lungs are clear. Heart has a regular rhythm without any murmur, click or gallop. Abdomen: Soft, nontender without any masses, organomegaly. Bowel sounds are active. There is no edema. Yesterday morning her hemoglobin was 9.8, although it had been 8.6 six hours earlier. Six hours later it was 8.4, was 8.5 yesterday afternoon and 8.6 this morning. Today, her BUN was 7, creatinine 0.6, calcium 8.6, potassium 3.6, glucose 84. Stool hemoccult testing is positive. ASSESSMENT: 1. Diverticular bleeding. Hemoglobin seems stable over the last 24 hours. 2. Hemorrhoids, not bleeding. 3. Chronic rheumatoid arthritis. 4. History of sleep apnea. 5. Orthostatic symptoms without orthostatic vitals. PLAN: The patient will continue to have her hemoglobin monitored and be monitored for active bleeding. She is on a regular diet at this time. She has her own continuous positive airway pressure (CPAP) machine to use. She has been on a regular floor after being on progressive care unit (PCU) and is tolerating this. I indicated to her and her that is she is feeling well and her vital signs are stable and her labs are stable in the morning, that she could be considered for discharge. SHELLEYD
[2017-01-30 06:35] LABS: MEAN CORPUSCULAR HGB CONC 32.7 g/dl (32.0-36.5); RED CELL DISTRIBUTION WIDTH 15.3 % (11.5-14.5); WHITE BLOOD COUNT 6.3 K/mm3 (4.0-10.0)
[2017-01-30 06:45] LABS: ANION GAP 3 MEQ/L (8-16); BLOOD UREA NITROGEN 10 MG/DL (7-18); CALCIUM LEVEL 8.6 MG/DL (8.8-10.2); CARBON DIOXIDE LEVEL 31 MEQ/L (21-32); CHLORIDE LEVEL 108 MEQ/L (98-107); CREATININE FOR GFR 0.71 MG/DL (0.55-1.02); GLOMERULAR FILTRATION RATE > 60.0 (>39); GLUCOSE, FASTING 90 MG/DL (83-110); MAGNESIUM LEVEL 1.9 MG/DL (1.8-2.4); POTASSIUM SERUM 3.6 MEQ/L (3.5-5.1); SODIUM LEVEL 142 MEQ/L (136-145)
[2017-01-30] MEDS: FOLIC ACID 1 MG TAB PO SCH (08:45)
[2017-01-30] MEDS: SENOKOT S TAB PO SCH ×2 (08:45→20:13)
[2017-01-30] MEDS: HYDROXYCHLOROQUINE 200 MG TAB PO SCH ×2 (08:45→20:13)
[2017-01-30] MEDS: PANTOPRAZOLE 40MG INJ (PROTONIX) (C9113) IV SCH (08:46)
[2017-01-30] MEDS: PRAVASTATIN 20 MG TAB PO SCH (20:13)
[2017-01-31 06:00] VITALS: BP 123/59
[2017-01-31 07:21] LABS: MEAN CORPUSCULAR HGB CONC 32.3 g/dl (32.0-36.5); MEAN CORPUSCULAR VOLUME 96.1 fl (80.0-96.0); RED CELL DISTRIBUTION WIDTH 15.1 % (11.5-14.5); WHITE BLOOD COUNT 6.3 K/mm3 (4.0-10.0)
[2017-01-31 07:57] LABS: ANION GAP 6 MEQ/L (8-16); BLOOD UREA NITROGEN 12 MG/DL (7-18); CALCIUM LEVEL 8.9 MG/DL (8.8-10.2); CARBON DIOXIDE LEVEL 29 MEQ/L (21-32); CHLORIDE LEVEL 107 MEQ/L (98-107); CREATININE FOR GFR 0.64 MG/DL (0.55-1.02); GLOMERULAR FILTRATION RATE > 60.0 (>39); GLUCOSE, FASTING 90 MG/DL (83-110); MAGNESIUM LEVEL 2.3 MG/DL (1.8-2.4); POTASSIUM SERUM 3.9 MEQ/L (3.5-5.1); SODIUM LEVEL 142 MEQ/L (136-145)
[2017-01-31] MEDS ORDERED: PANT40TA2 PO (08:41)
[2017-01-31] MEDS ORDERED: PANTOPRAZOLE 40MG TAB (PROTONIX) PO SCH (09:00)
[2017-01-31] MEDS ORDERED: FERR324T2 PO (09:36)
[2017-01-31] MEDS: FOLIC ACID 1 MG TAB PO SCH (09:38)
[2017-01-31] MEDS: HYDROXYCHLOROQUINE 200 MG TAB PO SCH (09:38)
[2017-01-31] MEDS: SENOKOT S TAB PO SCH (09:38)
--- NOTE | 2017-01-31 16:44 | DSES ---
DATE OF ADMISSION: 01/27/2017 DATE OF DISCHARGE: 01/31/2017 ATTENDING PHYSICIAN: Dr. Anita Gallardo PRIMARY CARE PHYSICIAN: Dr. Yeison Booth HISTORY OF PRESENT ILLNESS: 76-year-old female who presented to [facility] emergency room for complaints of blood in her stool. Patient did note that it a mixture of bright red blood with black colored tarry looking stool. Initial evaluation in the emergency room demonstrated a hemoglobin of 10.3 repeat was 9.5 with the patient's prior history of baseline hemoglobin of 13.4 Patient was subsequently admitted to Family Medicine Service. HOSPITAL COURSE: Patient's hemoglobin continued to trend down. Patient was subsequently transfused with a total of 3 units of packed red cells throughout her hospitalization. Patient is status-post colonoscopy with Dr. Garett Bhatt on 01/28/2017. Noted was a small hiatal hernia with normal stomach as well as non-bleeding internal hemorrhoids, small grade 1. Multiple medium mouth diverticula were noted in the rectosigmoid colon, sigmoid colon, and descending colon. Three hemostatic clips were placed successfully. Patient is status-post upper endoscopy and colonoscopy. On 01/30/2017, patient was noted to have a lower hemoglobin of 8.1 she was subsequently transfused. Today's hemoglobin was 9.1. Patient states that she is having normal bowel movements and is not noting any blood or dark tarry appearance in her stool. Denies abdominal pain, denies nausea or vomiting, denies diarrhea. Denies light headiness or dizziness with standing. On physical exam, hemoglobin 9.1, hematocrit 28.3, white blood cell count 6,000. Kidney and liver functions are stable with a blood pressure of 123/59. Oxygen 94 % on room air. Temp.: 98.6. Heart rate 67. Respiratory rate 17. HEENT: Neck supple without lymphadenopathy or jugular venous distension (JVD). CARDIOVASCULAR: Heart rate and rhythm are regular. PULMONARY: Lungs are clear to auscultation bilaterally. ABDOMEN: Soft and nontender with positive bowel sounds times all 4 quadrants. Bilateral lower extremity without any edema. The patient is alert and oriented times 3. No tremors visible. PSYCHE: Patient is alert and oriented times three. Conversation is appropriate and congruent. Affect is normal ASSESSMENT: 1. Gastrointestinal (GI) bleed, status-post colonoscopy with diverticular bleed and placement of clips. 2. Acute blood loss anemia secondary to GI bleed. 3. History of rheumatoid arthritis. 4. History of obstructive sleep apnea. 5. 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 6. History of paroxysmal atrial fibrillation. 7. Chronic leukopenia. 8. Hyperlipidemia. 9. Allergic rhinitis. 10. Osteoporosis. PLAN: Patient will be discharged home. Activities as tolerated. Diet is as tolerated. Medications are as follows: - New prescriptions include: pantoprazole sodium 40 mg 1 by mouth daily - Continued medications: calcium with vitamin D 1 tab by mouth daily - vitamin D 50,000 internation units 1 by mouth every 2 weeks - folic acid 1 mg by mouth daily - Plaquenil 200 mg by mouth twice a day - Pravastatin 80 mg by mouth at bedtime - Stop medications include her Aspirin 81 mg at bedtime - ibuprofen 200 mg capsules as needed - methotrexate is currently on hold until patient follows up with rheumatology - sulfasalazine ws also held. Patient will followup with primary care physician within the next 2 days. She is to have a CBC completed in am to ensure stability of her hemoglobin and will followup with gastroenterology, Dr. Bhatt within the next 1-2 weeks. The patient is discharged in stable satisfactory condition. No further questions at time of discharge. REMY
--- NOTE | 2017-01-31 20:39 | IPN ---
DATE: 01/30/2017 The patient is seen today on 4 [facility]. She is still having some lightheadedness and orthostatic symptoms despite the fact that her orthostatic vital signs are negative. She is not having any shortness of breath or chest pains. No abdominal pain. Has not had a bowel movement since we saw her yesterday. Does have some chronic extremity discomforts. Not having any edema. Is tolerating her meals, although she briefly felt nauseated after breakfast today. She remains on: - pantoprazole - vitamin D - folic acid - Senokot-S - Tylenol as needed - Zofran as needed - pravastatin - hydroxychloroquine. On examination, her temperature is 98.0, blood pressure 130/64, pulse 81 and regular. She is alert, pleasant, cooperative, not in any distress. Her eyes are clear. Speech is clear. Mucous membranes are moist. There are no neck masses, tenderness or adenopathy. No carotid bruits. Lungs are clear. Heart has a regular rhythm. There is no murmur, click or gallop. Abdomen soft, nontender, without any masses or organomegaly. Bowel sounds are active. There is no edema. Hemoglobin today is 8.1, BUN is 10, creatinine 0.7. ASSESSMENT: 1. Diverticular bleeding. Hemoglobin is down slightly since yesterday, although this may be dilutional effect. 2. Hemorrhoids. No bleeding. 3. Chronic rheumatoid arthritis. 4. History of sleep apnea. 5. Orthostatic symptoms without orthostatic vitals. PLAN: The patient will be transfused 1 unit today. I think the fact that she is having lightheadedness despite no orthostatic blood pressure drops is that her body would prefer a higher hemoglobin count while she is exerting herself . She is on a regular diet. She is tolerating it. She has her own continuous positive airway pressure (CPAP) for her sleep apnea. Hopefully, we will be able to consider sending her home tomorrow. At that time, she could resume her matter regular medications and follow up with her community physician.
--- NOTE | 2017-02-03 05:57 | CR ---
DATE OF CONSULTATION: 01/27/2017 This a 76-year-old white female who was admitted [facility] ([facility]) on 01/26/2017. The patient presents with a complaint of what appears to be a lower gastrointestinal (GI) bleed. The patient stated that she started passing blood on Tuesday prior to admission. She had taken Advil one tablet twice a day for the past month for her arthritis, which has apparently recently flared. She had no complaints of fevers, night sweats, or shaking chills. No involuntary weight loss. No change in bowel habits. No hematemesis. She describes her bowel movements as tracey in color not melanic. No previous history of GI bleeding. She had a colonoscopy in August of 2016, which showed diverticulosis. No apparent fevers, night sweats, or shaking chills. The patient is not taking any anticoagulation. Patient is being seen by GI for consideration for upper and/or lower endoscopy for evaluation of the bleed. PAST MEDICAL HISTORY: Is positive for: 1. Rheumatoid arthritis. 2. Obstructive sleep apnea, on continuous positive airway pressure (CPAP). 3. Paroxysmal atrial fibrillation. 4. Chronic leukopenia. 5. Allergic rhinitis. 6. Hyperparathyroidism secondary to hyperactive adenoma. 7. Osteoporosis. 8. Hyperlipidemia. PAST SURGICAL HISTORY: 1. Parathyroidectomy. 2. Hemorrhoidectomy. 3. Colonoscopy in 2015, which showed hemorrhoids and diverticulosis. ALLERGIES: To CELEBREX. MEDICATIONS: Include: - Advil 400 mg every 6 hours as needed (However, the patient has been taking this twice a day daily for a month.) - aspirin 81 mg - calcium with vitamin D - folic acid - hydroxychloroquine - methotrexate - Pravachol - sulfasalazine FAMILY HISTORY: Father of an aneurysm. Mother had complications from Alzheimer's. SOCIAL HISTORY: Cigarettes, alcohol, and drugs negative. REVIEW OF SYSTEMS: Noncontributory to the above problem. OBJECTIVE: General: She is a well-developed, well-nourished female in no obvious acute distress. Appears stated age. Chest: Is clear to auscultation. Cardiovascular: Exam showed a regular rhythm. No murmurs, rubs, or gallops. Normal physiological split S1, S2. Abdomen: Is soft, nontender. No masses noted. No rebound. No hepatosplenomegaly. Bowel sounds positive. Extremities: No cyanosis, clubbing, or edema. Homans negative. LABORATORY STUDIES: On admission, showed a hemoglobin of 10.3, hematocrit of 31.7, which has equilibrated down to 8.7 and 27.0. The patient has been given 1 unit of packed cells. Her INR was normal. Her chemistry was also normal. CAT scan of the abdomen was apparently performed in the emergency room on 01/26/2017, which shows essentially a normal study. ANALYSIS: Gastrointestinal bleeding, most likely secondary to a right-sided diverticular bleed and/or possible secondary to nonsteroidal anti-inflammatory drug (NSAID) induced gastropathy, though this is more doubtful since the patient is describing tracey stools, which is consistent with a right-sided colonic bleed. PLAN: Will be: 1. To transfuse the patient 1 unit packed cells. 2. Upper endoscopy and colonoscopy will be set up in [facility] both in the morning. Bowel prep will be ordered.
== END 2017-01-31 10:19 | disposition home or self-care (01) | DRG 330 ==
LOC: M ED 16:57 → M ED INP 21:25 → M PCU 22:20 → M MSPAV 01-28 17:25
PROVIDERS: ADMIT Hospitalist; ATTEND Family Medicine
PROC: 30233N1 Transfusion of Nonautologous Red Blood Cells into Peripheral Vein, Percutaneous Approach (ICD-10-PCS; 2017-01-26)
PROC: 0DQ Gastrointestinal System, Repair (ICD-10-PCS; 2017-01-28)
PROC: 0DJ08ZZ Inspection of Upper Intestinal Tract, Via Natural or Artificial Opening Endoscopic (ICD-10-PCS; 2017-01-28)
PROC: 0DQN8ZZ Repair Sigmoid Colon, Via Natural or Artificial Opening Endoscopic (ICD-10-PCS; principal; 2017-01-28 07:30)
DX: K57.91 Diverticulosis of intestine, part unspecified, without perforation or abscess with bleeding (principal); D62 Acute posthemorrhagic anemia; K92.1 Melena; K44.9 Diaphragmatic hernia without obstruction or gangrene; K64.8 Other hemorrhoids; K57.30 Diverticulosis of large intestine without perforation or abscess without bleeding; G47.33 Obstructive sleep apnea (adult) (pediatric); E78.5 Hyperlipidemia, unspecified; I48.0 Paroxysmal atrial fibrillation; M06.9 Rheumatoid arthritis, unspecified; Z79.899 Other long term (current) drug therapy; J30.9 Allergic rhinitis, unspecified; Z88.8 Allergy status to other drugs, medicaments and biological substances; E55.9 Vitamin D deficiency, unspecified

== ENCOUNTER → 2017-02-01 | Outpatient (REF) | payer MEDICARE ==
[~2017-02-01] MED LIST changes: +ADVI200C5 PO; +ASPI81TA21 PO; +ASPI81TA85 PO; +CALCLIQ4 PO; +CALCTAB75 PO; +FERR324T2 PO; +FOLI1TAB2; +FOLI1TAB2 PO; +HYDR200T3; +HYDR200T3 PO; -HYDROXYCHLOROQUINE 200 MG TAB PO SCH; +METH2.5TA; +METH2.5TA PO; +PANT40TA2 PO; +PRAV80TA2; +PRAV80TA2 PO; +SULF500T2; +SULF500T2 PO; +VITA50003; +VITA50003 PO
[2017-02-01 16:33] LABS: ANION GAP 6 MEQ/L (8-16); BLOOD UREA NITROGEN 12 MG/DL (7-18); CALCIUM LEVEL 9.3 MG/DL (8.8-10.2); CARBON DIOXIDE LEVEL 31 MEQ/L (21-32); CHLORIDE LEVEL 105 MEQ/L (98-107); FERRITIN 62 NG/ML (8-252); GLOMERULAR FILTRATION RATE > 60.0 (>39); GLUCOSE, FASTING 113 MG/DL (83-110); PERCENT SATURATION 16.4 % (13.2-37.4); POTASSIUM SERUM 4.2 MEQ/L (3.5-5.1); SODIUM LEVEL 142 MEQ/L (136-145); TOTAL IRON BINDING CAPACITY 292 UG/DL (250-450)
[2017-02-01 16:36] LABS: BASO % 0.5 % (0.0-1.0); EOS # 0.4 K/mm3 (0.0-0.50); EOS % 4.2 % (0.0-3.0); LARGE UNSTAINED CELL # 0.2 K/mm3 (0.0-0.4); LARGE UNSTAINED CELL % 1.6 % (0.0-4.0); LYMPH # 1.6 K/mm3 (1.5-4.5); LYMPH % 15.2 % (24.0-44.0); MEAN CORPUSCULAR HEMOGLOBIN 31.3 pg (27.0-33.0); MEAN CORPUSCULAR HGB CONC 31.6 g/dl (32.0-36.5); MEAN CORPUSCULAR VOLUME 98.9 fl (80.0-96.0); MONO # 0.5 K/mm3 (0.0-0.8); MONO % 5.3 % (0.0-5.0); NEUTROPHILS # 7.1 K/mm3 (1.8-7.7); NEUTROPHILS % 73.2 % (36.0-66.0); PLATELET COUNT, AUTOMATED 314 k/mm3 (150-450); RED CELL DISTRIBUTION WIDTH 14.8 % (11.5-14.5); WHITE BLOOD COUNT 9.7 K/mm3 (4.0-10.0)
== END ==
LOC: M SFHCPLAZ 12:57
PROVIDERS: ATTEND Physician Assistant Medical
DX: D50.0 Iron deficiency anemia secondary to blood loss (chronic) (principal)

== ENCOUNTER → 2017-02-22 | Outpatient (REF) | payer MEDICARE ==
[2017-02-22 12:11] LABS: BASO # 0.1 K/mm3 (0.0-0.2); BASO % 1.3 % (0.0-1.0); EOS # 0.2 K/mm3 (0.0-0.50); EOS % 5.5 % (0.0-3.0); LARGE UNSTAINED CELL # 0.1 K/mm3 (0.0-0.4); LYMPH # 1.5 K/mm3 (1.5-4.5); LYMPH % 29.6 % (24.0-44.0); MEAN CORPUSCULAR VOLUME 99.8 fl (80.0-96.0); MONO # 0.4 K/mm3 (0.0-0.8); MONO % 7.7 % (0.0-5.0); NEUTROPHILS # 2.5 K/mm3 (1.8-7.7); PLATELET COUNT, AUTOMATED 285 k/mm3 (150-450); RED CELL DISTRIBUTION WIDTH 14.5 % (11.5-14.5); WHITE BLOOD COUNT 4.6 K/mm3 (4.0-10.0)
[2017-02-22 12:13] LABS: ALBUMIN 3.4 GM/DL (3.2-5.2); ALBUMIN/GLOBULIN RATIO 0.94 (1.00-1.93); ALKALINE PHOSPHATASE 60 U/L (45-117); ALT/SGPT 22 U/L (12-78); ANION GAP 5 MEQ/L (8-16); AST/SGOT 18 U/L (15-37); BILIRUBIN,TOTAL 0.3 MG/DL (0.2-1.0); BLOOD UREA NITROGEN 17 MG/DL (7-18); CALCIUM LEVEL 9.5 MG/DL (8.8-10.2); CARBON DIOXIDE LEVEL 31 MEQ/L (21-32); CHLORIDE LEVEL 105 MEQ/L (98-107); CREATININE FOR GFR 0.72 MG/DL (0.55-1.02); GLOMERULAR FILTRATION RATE > 60.0 (>39); GLUCOSE, FASTING 78 MG/DL (83-110); PERCENT SATURATION 16.5 % (13.2-37.4); POTASSIUM SERUM 4.1 MEQ/L (3.5-5.1); SODIUM LEVEL 141 MEQ/L (136-145); TOTAL IRON BINDING CAPACITY 297 UG/DL (250-450)
== END ==
LOC: M SFHCPLAZ 08:59
PROVIDERS: ATTEND Physician Assistant Medical
DX: D50.0 Iron deficiency anemia secondary to blood loss (chronic) (principal)

== ENCOUNTER → 2017-02-22 | Outpatient (REF) | payer MEDICARE ==
[2017-02-22 12:17] LABS: MEAN CORPUSCULAR HEMOGLOBIN 31.4 pg (27.0-33.0); MEAN CORPUSCULAR VOLUME 101.1 fl (80.0-96.0); RED CELL DISTRIBUTION WIDTH 14.3 % (11.5-14.5); WHITE BLOOD COUNT 4.8 K/mm3 (4.0-10.0)
== END ==
LOC: M LABDRAWP 11:57
PROVIDERS: ATTEND Internal Medicine Gastroenterology
DX: D64.9 Anemia, unspecified (principal)

== ENCOUNTER → 2017-04-01 | Outpatient (REF) | payer MEDICARE ==
[~2017-04-01] MED LIST changes: +ASPI81CH PO; +AZUL500T3 PO; +DRIS50002 PO; +FERR325T16 PO; -FOLI1TAB2; -FOLI1TAB2 PO; +FOLI1TAB4; +FOLI1TAB4 PO; +PERC5TAB12 PO; +VITA1CAP40; +VITA1CAP40 PO; -VITA50003; -VITA50003 PO
[2017-04-01 13:22] LABS: BASO % 0.6 % (0.0-1.0); EOS # 0.1 K/mm3 (0.0-0.50); LARGE UNSTAINED CELL # 0.1 K/mm3 (0.0-0.4); LARGE UNSTAINED CELL % 1.9 % (0.0-4.0); LYMPH # 1.1 K/mm3 (1.5-4.5); LYMPH % 16.4 % (24.0-44.0); MEAN CORPUSCULAR HEMOGLOBIN 31.5 pg (27.0-33.0); MEAN CORPUSCULAR HGB CONC 32.7 g/dl (32.0-36.5); MEAN CORPUSCULAR VOLUME 96.4 fl (80.0-96.0); MONO # 0.5 K/mm3 (0.0-0.8); MONO % 7.8 % (0.0-5.0); NEUTROPHILS # 4.4 K/mm3 (1.8-7.7); NEUTROPHILS % 71.2 % (36.0-66.0); PLATELET COUNT, AUTOMATED 264 k/mm3 (150-450); RED CELL DISTRIBUTION WIDTH 13.8 % (11.5-14.5); WHITE BLOOD COUNT 6.2 K/mm3 (4.0-10.0)
[2017-04-01 13:28] LABS: INR 0.93
[2017-04-01 13:34] LABS: ALBUMIN 3.5 GM/DL (3.2-5.2); ALKALINE PHOSPHATASE 64 U/L (45-117); ALT/SGPT 19 U/L (12-78); ANION GAP 6 MEQ/L (8-16); AST/SGOT 20 U/L (15-37); BILIRUBIN,TOTAL 0.7 MG/DL (0.2-1.0); BLOOD UREA NITROGEN 11 MG/DL (7-18); CALCIUM LEVEL 9.6 MG/DL (8.8-10.2); CARBON DIOXIDE LEVEL 31 MEQ/L (21-32); CHLORIDE LEVEL 102 MEQ/L (98-107); CREATININE FOR GFR 0.71 MG/DL (0.55-1.02); GLOMERULAR FILTRATION RATE > 60.0 (>39); GLUCOSE, FASTING 84 MG/DL (83-110); MAGNESIUM LEVEL 2.2 MG/DL (1.8-2.4); PERCENT SATURATION 10.5 % (13.2-37.4); POTASSIUM SERUM 3.9 MEQ/L (3.5-5.1); SODIUM LEVEL 139 MEQ/L (136-145); TOTAL IRON BINDING CAPACITY 277 UG/DL (250-450)
== END ==
LOC: M LABDRAWP 12:20
PROVIDERS: ATTEND Family Medicine
DX: D50.9 Iron deficiency anemia, unspecified (principal); Z79.01 Long term (current) use of anticoagulants
CPT/HCPCS: 36415; 80053; 83550; 83735; 85025; 85610; 85730; G0463

== ENCOUNTER → 2017-04-04 | Day surgery (SDC) | payer MEDICARE ==
[~2017-04-04] VITALS: Ht 165.1 cm; Wt 76.7 kg
[~2017-04-04] MED LIST changes: +FOLI1TAB2; +FOLI1TAB2 PO; -FOLI1TAB4; -FOLI1TAB4 PO; +KETOROLAC 60 MG/2 ML VIAL (J1885) As Ordered ONE; +LIDOCAINE 2% INJ 100 MG/5 ML SDV (FOR ANES.) As Ordered ONE; +LR 1,000 ML IV SCH; +MIDAZOLAM INJ 2 MG/2 ML VIAL (J2250) As Ordered ONE; +MORPHINE 2 MG/ML 1ML SYRINGE IV PRN; +NORCO, ANEXSIA 5/325MG TABLET (HYDROcodone/ACETAMINOPHEN) PO PRN; +ONDANSETRON 4MG/2ML VIAL (J2405) As Ordered ONE; +ONDANSETRON 4MG/2ML VIAL (J2405) IV PRN; -PERC5TAB12 PO; +PERC5TAB6 PO; +PERCOCET 5MG/325MG TAB As Ordered ONE; +PROPOFOL 500 MG/50 ML VIAL As Ordered ONE; -VITA1CAP40; -VITA1CAP40 PO; +VITA50003; +VITA50003 PO; +ceFAZolin 1GM INJ (J0690) As Ordered ONE; +ePHEDrine SULFATE 25 MG/5 ML(5MG/ML) SYRINGE As Ordered ONE; +fentaNYL 100 MCG/2 ML INJECTION (J3010) As Ordered ONE; +fentaNYL 100 MCG/2 ML INJECTION (J3010) IV PRN
--- NOTE | 2017-04-04 14:52 | REP ---
Left ankle intraoperative fluoroscopic views: A series of four intraoperative fluoroscopic views are performed during internal fixation of the distal tibia and fibula. Final views demonstrate the surgical hardware and skeletal structures to be in satisfactory positions alignment. Fluoroscopic exposure time is 1 minute and 15 seconds. Fluoroscopic images are performed with last image hold technology, require no additional radiation. Signed by Tony Alvarez MD 04/04/2017 02:43 P
[2017-04-04] MEDS: PERCOCET 5MG/325MG TAB PO PRN ×2 (15:12→16:10)
[2017-04-04 17:25] VITALS: BP 147/66
--- NOTE | 2017-04-05 07:42 | RO ---
DATE OF PROCEDURE: 04/04/2017 PREOPERATIVE DIAGNOSIS: Left ankle trimalleolar fracture. POSTOPERATIVE DIAGNOSIS: Left ankle trimalleolar fracture. PROCEDURE: Open reduction internal fixation (ORIF) left ankle trimalleolar fracture with fixation of posterior lip. SURGEON: Dr. Dwayne Lees. CLOTHING ROOM SUPERVISOR: ANESTHESIA: General. ESTIMATED BLOOD LOSS: Less than 20. COMPLICATIONS: None. INDICATIONS: This is a 77-year-old woman who last week decided to use a Segway-type scooter when she fell and broke her ankle. She sustained a trimalleolar fracture and presented to my office with a fair amount of swelling a few days ago. I recommend surgical treatment because this was an unstable fracture pattern. She and her family wished to go ahead with surgical treatment. They understood the nature of this, the risks of bleeding, infection, damage to nerves, vessels, persistent pain, stiffness, blood clots, hardware failure, loss of reduction, malunion, nonunion, need for hardware removal, among others. PROCEDURE: The patient was taken to the operating room and placed in supine position after general anesthesia was induced. Left lower extremity was prepped and draped in usual sterile fashion. A tourniquet was inflated. We performed a time-out prior to that and a curvilinear incision was made over the medial aspect of the ankle. Blunt dissection was carried down through subcutaneous tissue, controlled hemostasis with a cautery and then identified the fracture site. It was quite distal medial malleolar fracture. I was able to reduce it. I actually had to hold a hemostat just underneath the medial malleolus to lift it a little bit away from the talus to hold it reduced. I then was able to drive a 2.5 drill up into the tibia. I measured in placed a partially threaded cancellus screw with a washer 45 mm in length to bring this piece in and hold it reduced. Excellent reduction was noted and C-arm images were obtained to confirm the fracture was very well reduced. I then directed attention to the fibula. We tipped the bed and a longitudinal incision was made over the lateral aspect of the fibula. Blunt dissection was carried down through subcutaneous tissue. I identified the cutaneous nerve and retracted this gently anteriorly. Fibula fracture was somewhat comminuted and was quite distal as well and I was able to clean off the fracture edges carefully and irrigate as I had also irrigated on the medial side and the bone was noted to be quite osteopenic. I had difficulty holding it with clamps to hold it reduced. There was no way I could find a reasonable way to place an interfragmental screw due to the comminution so the fracture was held in place with a pointed towel clip reduction clamp and a contoured six hole one-third tubular plate along the lateral aspect, hooked it around the end of the fibula and placed two screws in the distal fragment and three screws in the proximal fragment, obtaining overall what appeared to be an excellent reduction. C-arm images were obtained at this point, which confirmed that the fracture was well reduced in a good position. The posterior malleolar fracture however, was still somewhat elevated and despite dorsiflexing the ankle, I was not able to get this reduced. I did have to slide my finger in the posterior lateral aspect of the ankle and actually could feel the fracture site and was able to push it down and hold it in a reduced position on C-arm images. This took a little bit of effort but then was able to get it in what appeared to be a very good position. At this point, I made a small incision in the anterior aspect of the ankle about 3/4 cm up from the ankle joint and bluntly dissected with a hemostat down to the level of the bone. I placed a pin pile driver engineer down to the bone and then advanced this pin in from the 4.5 cannulated set anterior to posterior into the fragment. I did this under C-arm guidance to confirm that the pin was of appropriate length and could also feel behind the ankle and make sure I had not penetrated beyond the cortex. I measured this and then placed a partially threaded 4.5 cancellous screw front to back into this fragment which seemed to secure the fracture fragment quite well. I placed it under C-arm guidance while I dorsiflexed the ankle and then final C-arm images showed the fractures to be reduced and in excellent position. The ankle joint was reduced. The mortise was well-maintained. I irrigated all the wounds out copiously then closed the subcu with #2-0 Vicryl and the skin with janeth. I did close some deep tissue over the fibular plate laterally prior to subcu closure. Sterile dressing was applied and well molded, well-padded short-leg cast was applied. Tourniquet was deflated prior to final wound closure. She was taken to the recovery room in stable condition. There were no known complications. The plan will be routine postop. We are going to keep her non-weightbearing with crutches or a knee walker for likely 6 weeks. She is told to expect that there could be some bleeding through the cast which is common. She is going to go back on her aspirin. If she is comfortable today, she will be able to go home.
== END | disposition home or self-care (01) ==
LOC: M SDC 10:34
PROVIDERS: ATTEND Orthopaedic Surgery
DX: S82.852A Displaced trimalleolar fracture of left lower leg, initial encounter for closed fracture (principal); V00.831A Fall from motorized mobility scooter, initial encounter; Y92.89 Other specified places as the place of occurrence of the external cause; Y99.9 Unspecified external cause status; E78.4 Other hyperlipidemia; K57.32 Diverticulitis of large intestine without perforation or abscess without bleeding; G47.30 Sleep apnea, unspecified; R27.0 Ataxia, unspecified; M06.9 Rheumatoid arthritis, unspecified; I48.0 Paroxysmal atrial fibrillation; Z85.828 Personal history of other malignant neoplasm of skin; R22.41 Localized swelling, mass and lump, right lower limb; E55.9 Vitamin D deficiency, unspecified; D50.9 Iron deficiency anemia, unspecified; J47.9 Bronchiectasis, uncomplicated; M81.0 Age-related osteoporosis without current pathological fracture; Z79.82 Long term (current) use of aspirin; Z79.899 Other long term (current) drug therapy; Y93.9 Activity, unspecified
CPT/HCPCS: 27823; 73610; C1776; J0690; J1885; J2250; J2405; J3010

== ENCOUNTER → 2017-06-07 | Outpatient (REF) | payer MEDICARE ==
[~2017-06-07] MED LIST changes: -FOLI1TAB2; -FOLI1TAB2 PO; +FOLI1TAB4; +FOLI1TAB4 PO; -KETOROLAC 60 MG/2 ML VIAL (J1885) As Ordered ONE; -LIDOCAINE 2% INJ 100 MG/5 ML SDV (FOR ANES.) As Ordered ONE; -LR 1,000 ML IV SCH; -MIDAZOLAM INJ 2 MG/2 ML VIAL (J2250) As Ordered ONE; -MORPHINE 2 MG/ML 1ML SYRINGE IV PRN; -NORCO, ANEXSIA 5/325MG TABLET (HYDROcodone/ACETAMINOPHEN) PO PRN; -ONDANSETRON 4MG/2ML VIAL (J2405) As Ordered ONE; -ONDANSETRON 4MG/2ML VIAL (J2405) IV PRN; +PERC5TAB12 PO; -PERC5TAB6 PO; -PERCOCET 5MG/325MG TAB As Ordered ONE; -PROPOFOL 500 MG/50 ML VIAL As Ordered ONE; +VITA1CAP40; +VITA1CAP40 PO; -VITA50003; -VITA50003 PO; -ceFAZolin 1GM INJ (J0690) As Ordered ONE; -ePHEDrine SULFATE 25 MG/5 ML(5MG/ML) SYRINGE As Ordered ONE; -fentaNYL 100 MCG/2 ML INJECTION (J3010) As Ordered ONE; -fentaNYL 100 MCG/2 ML INJECTION (J3010) IV PRN
[2017-06-07 11:54] LABS: ALBUMIN 3.6 GM/DL (3.2-5.2); ALBUMIN/GLOBULIN RATIO 0.97 (1.00-1.93); ALKALINE PHOSPHATASE 71 U/L (45-117); ALT/SGPT 17 U/L (12-78); ANION GAP 9 MEQ/L (8-16); AST/SGOT 17 U/L (15-37); BILIRUBIN,TOTAL 0.5 MG/DL (0.2-1.0); BLOOD UREA NITROGEN 17 MG/DL (7-18); CALCIUM LEVEL 9.8 MG/DL (8.8-10.2); CARBON DIOXIDE LEVEL 28 MEQ/L (21-32); CHLORIDE LEVEL 106 MEQ/L (98-107); CREATININE FOR GFR 0.65 MG/DL (0.55-1.02); FREE T4 1.14 NG/DL (0.76-1.46); GLOMERULAR FILTRATION RATE > 60.0 (>39); GLUCOSE, FASTING 80 MG/DL (83-110); POTASSIUM SERUM 4.3 MEQ/L (3.5-5.1); SODIUM LEVEL 143 MEQ/L (136-145); TOTAL PROTEIN 7.3 GM/DL (6.4-8.2)
== END ==
LOC: M LABDRAWP 08:23
PROVIDERS: ATTEND Family Medicine
DX: E55.9 Vitamin D deficiency, unspecified (principal); E78.5 Hyperlipidemia, unspecified

== ENCOUNTER 2017-08-29 14:11 | Emergency (ER) | payer MEDICARE ==
[~2017-08-29] VITALS: Ht 165.1 cm; Wt 75.0 kg
[2017-08-29] MEDS ORDERED: IBUP-1022 PO (15:59)
[2017-08-29] MEDS ORDERED: SOMA350T PO (15:59)
[2017-08-29] MEDS ORDERED: KETOROLAC 60 MG/2 ML VIAL (J1885) IM ONE (16:00)
[2017-08-29 16:48] VITALS: BP 132/83
== END 2017-08-29 16:48 | disposition home or self-care (01) ==
LOC: M ED 14:11
DX: S39.012A Strain of muscle, fascia and tendon of lower back, initial encounter (principal); X50.0XXA Overexertion from strenuous movement or load, initial encounter; Y92.099 Unspecified place in other non-institutional residence as the place of occurrence of the external cause; Y93.89 Activity, other specified; Y99.9 Unspecified external cause status; Z79.82 Long term (current) use of aspirin; Z79.899 Other long term (current) drug therapy
CPT/HCPCS: 96372; 99283; J1885; J3360

== ENCOUNTER → 2017-08-31 | Outpatient (CLI) | payer MEDICARE ==
[~2017-08-31] MED LIST changes: +IBUP-1022 PO; +SOMA350T PO
--- NOTE | 2017-08-31 12:04 | REP ---
Clinical: Pain with recent trauma. Technique: AP, lateral, bilateral oblique and coned-down views of the lumbosacral spine. Findings: Age-related osteopenia and advanced multilevel degenerative changes are appreciated and remains stable when compared to CT images dated 01/26/2017. Degenerative changes include osteophytosis, endplate sclerosis, disc space narrowing and hypertrophic facet changes. There is no evidence for acute fracture / compression injury or subluxation. Impression: Osteopenia and advanced multilevel degenerative changes. Stable compared to CT dated 01/26/2017. No acute fracture / compression injury or subluxation. Signed by Brant Qiu MD 08/31/2017 11:56 A
== END ==
LOC: M SMT 11:14
PROVIDERS: ATTEND Physician Assistant Medical
DX: M85.88 Other specified disorders of bone density and structure, other site (principal); M51.36 Other intervertebral disc degeneration, lumbar region; Z23 Encounter for immunization
CPT/HCPCS: 72110; 90662; G0008; G0463

== ENCOUNTER → 2017-10-05 | Outpatient (CLI) | payer MEDICARE ==
--- NOTE | 2017-10-05 14:10 | REPMRS ---
Patient History The patient states she has not had a clinical breast exam in over a year. Patient is postmenopausal, has history of Basal Cell cancer at age 47, and is nulliparous. Family history of breast cancer in maternal cousin. Digital Woman Screen Mammo: October 05, 2017 - Exam #: [id number] Bilateral CC and MLO view(s) were taken. Technologist: Latonia Dickson Technologist Prior study comparison: September 29, 2016, digital woman screen mammo performed at [facility]. September 22, 2015, digital bilateral screening mammo, performed at [facility]. FINDINGS: The breast tissue is heterogeneously dense. This may lower the sensitivity of mammography. There has been no change in the appearance of the mammogram from the prior studies. There is a moderate amount of residual fibroglandular tissue which is fairly symmetric. There is no interval development of dominant mass, areas of architectural distortion, or clustered microcalcification typical of malignancy. ASSESSMENT: BI-RADS/ACR category 1 mammogram. Negative. Recommendation Routine screening mammogram in 1 year (for women over age 40). This mammogram was interpreted with the aid of an FDA-approved computer-aided dectection system. Electronically Signed By: Tony Dumont MD 10/05/17 [id number]
--- NOTE | 2017-10-12 10:37 | DEXA ---
AP SPINE L1 - L4 0.964 -1.9 -0.1 LT FEMUR TOTAL 0.780 -1.8 0.0 RT FEMUR TOTAL 0.720 -2.3 -0.5 TOTAL BODY TOTAL OTHER COMMENTS: There is low bone density of the spine and hips. The increased density of the spine does represent a significant change. The decreased density of the left hip does represent a significant change. The decreased density of the right hip does represent a significant change. The density of the spine is increased 7.3% since the initial exam on 08/16/2007. The spine density has increased 2.0% since the most recent exam on 09/22/2015. The density of the left hip has decreased 9.9% since the initial exam on 2006. The density of the left hip has decreased 11.5% since the most recent exam on . The density of the right hip has decreased 18.3% since the initial exam on 08/16. The density of the right hip has decreased 18.9% since the most recent exam on 09/22/2015. FOLLOW-UP: Recommendation for the next bone density exam: 2 years. REMY
== END ==
LOC: M WHC 12:53
PROVIDERS: ATTEND Family Medicine
DX: Z12.31 Encounter for screening mammogram for malignant neoplasm of breast (principal); M81.0 Age-related osteoporosis without current pathological fracture; Z78.0 Asymptomatic menopausal state; R92.8 Other abnormal and inconclusive findings on diagnostic imaging of breast
CPT/HCPCS: 77080; G0202

== ENCOUNTER → 2017-10-11 | Outpatient (REF) | payer MEDICARE ==
[2017-10-11 11:26] LABS: BASO # 0.1 10^3/uL (0.0-0.2); BASO % 1.2 % (0.0-1.0); EOS # 0.3 10^3/uL (0.0-0.50); IMMATURE GRANULOCYTE % 0.2 % (0-0); LYMPH # 1.4 10^3/uL (1.5-4.5); LYMPH % 33.2 % (24.0-44.0); MEAN CORPUSCULAR HEMOGLOBIN 31.7 pg (27.0-33.0); MEAN CORPUSCULAR HGB CONC 33.2 g/dl (32.0-36.5); MEAN CORPUSCULAR VOLUME 95.7 fl (80.0-96.0); MONO # 0.6 10^3/uL (0.0-0.8); MONO % 13.4 % (0.0-5.0); PLATELET COUNT, AUTOMATED 289 10^3/uL (150-450); RED CELL DISTRIBUTION WIDTH 14.2 % (11.5-14.5); WHITE BLOOD COUNT 4.3 10^3/uL (4.0-10.0)
[2017-10-11 11:41] LABS: ALBUMIN 3.7 GM/DL (3.2-5.2); ALBUMIN/GLOBULIN RATIO 1.09 (1.00-1.93); ALKALINE PHOSPHATASE 70 U/L (45-117); ALT/SGPT 23 U/L (12-78); ANION GAP 5 MEQ/L (8-16); AST/SGOT 23 U/L (7-37); BILIRUBIN,TOTAL 0.4 MG/DL (0.2-1.0); BLOOD UREA NITROGEN 17 MG/DL (7-18); CALCIUM LEVEL 9.2 MG/DL (8.8-10.2); CARBON DIOXIDE LEVEL 31 MEQ/L (21-32); CHLORIDE LEVEL 105 MEQ/L (98-107); CHOLESTEROL LEVEL 200 MG/DL (<200); CREATININE FOR GFR 0.61 MG/DL (0.55-1.02); FERRITIN 44 NG/ML (8-252); GLOMERULAR FILTRATION RATE > 60.0 (>39); GLUCOSE, FASTING 83 MG/DL (83-110); PERCENT SATURATION 16.3 % (13.2-45.0); POTASSIUM SERUM 4.6 MEQ/L (3.5-5.1); SODIUM LEVEL 141 MEQ/L (136-145); TOTAL IRON BINDING CAPACITY 288 UG/DL (250-450); TOTAL PROTEIN 7.1 GM/DL (6.4-8.2); TRIGLYCERIDES LEVEL 75 MG/DL (<150)
== END ==
LOC: M SFHCPLAZ 08:40
PROVIDERS: ATTEND Family Medicine
DX: D50.9 Iron deficiency anemia, unspecified (principal); E55.9 Vitamin D deficiency, unspecified; E78.5 Hyperlipidemia, unspecified

== ENCOUNTER → 2018-02-10 | Outpatient (REF) | payer MEDICARE ==
[2018-02-10 11:42] LABS: BASO # 0.1 10^3/uL (0.0-0.2); BASO % 0.8 % (0.0-1.0); EOS # 0.3 10^3/uL (0.0-0.50); EOS % 4.4 % (0.0-3.0); HEMATOCRIT 38.5 % (36.0-47.0); HEMOGLOBIN 12.6 g/dl (12.0-15.5); IMMATURE GRANULOCYTE % 0.2 % (0-3.0); LYMPH # 1.6 10^3/uL (1.5-4.5); LYMPH % 25.7 % (24.0-44.0); MEAN CORPUSCULAR HEMOGLOBIN 31.6 pg (27.0-33.0); MEAN CORPUSCULAR HGB CONC 32.7 g/dl (32.0-36.5); MEAN CORPUSCULAR VOLUME 96.5 fl (80.0-96.0); MONO # 0.7 10^3/uL (0.0-0.8); MONO % 11.1 % (0.0-5.0); NEUTROPHILS # 3.6 10^3/uL (1.8-7.7); NEUTROPHILS % 57.8 % (36.0-66.0); PLATELET COUNT, AUTOMATED 277 10^3/uL (150-450); RED BLOOD COUNT 3.99 10^6/uL (4.00-5.40); RED CELL DISTRIBUTION WIDTH 13.8 % (11.5-14.5); RETIC HEMOGLOBIN EQUIVALENT 35.2 pg (24-36); RETICULOCYTE # 53.9 10^9/L (17-77); RETICULOCYTE % 1.4 % (0.5-1.5); WHITE BLOOD COUNT 6.2 10^3/uL (4.0-10.0)
[2018-02-10 11:59] LABS: ALBUMIN 3.7 GM/DL (3.2-5.2); ALBUMIN/GLOBULIN RATIO 0.97 (1.00-1.93); ALKALINE PHOSPHATASE 73 U/L (45-117); ALT/SGPT 22 U/L (12-78); ANION GAP 6 MEQ/L (8-16); AST/SGOT 21 U/L (7-37); BILIRUBIN,TOTAL 0.5 MG/DL (0.2-1.0); BLOOD UREA NITROGEN 17 MG/DL (7-18); CALCIUM LEVEL 9.7 MG/DL (8.8-10.2); CARBON DIOXIDE LEVEL 30 MEQ/L (21-32); CHLORIDE LEVEL 107 MEQ/L (98-107); CREATININE FOR GFR 0.71 MG/DL (0.55-1.30); GLOMERULAR FILTRATION RATE > 60.0 (>39); GLUCOSE, FASTING 74 MG/DL (70-100); POTASSIUM SERUM 4.4 MEQ/L (3.5-5.1); SODIUM LEVEL 143 MEQ/L (136-145); TOTAL PROTEIN 7.5 GM/DL (6.4-8.2)
[2018-02-10 12:29] LABS: PTH INTACT 84.7 PG/ML (18.5-88.0)
[2018-02-10 12:30] LABS: VITAMIN B12 LEVEL 476 PG/ML (247-911)
== END ==
LOC: M SFHCPLAZ 09:52
DX: D50.9 Iron deficiency anemia, unspecified (principal); E55.9 Vitamin D deficiency, unspecified
CPT/HCPCS: 82607

== ENCOUNTER 2018-03-08 07:56 | Outpatient (CLI) | payer MEDICARE ==
[2018-03-08] MEDS: ZOLEDRONIC ACID 5 MG in APPROPRIATE DILUENT 1 EA IV (08:25)
== END 2018-03-08 09:00 | disposition home or self-care (01) ==
LOC: M INFU 07:56
DX: M81.0 Age-related osteoporosis without current pathological fracture (principal); E78.00 Pure hypercholesterolemia, unspecified; M06.9 Rheumatoid arthritis, unspecified; Z79.82 Long term (current) use of aspirin; Z79.899 Other long term (current) drug therapy
CPT/HCPCS: J3489

== ENCOUNTER → 2018-10-26 | Outpatient (REF) | payer MEDICARE ==
[~2018-10-26] MED LIST changes: -DRIS50002 PO; +DRIS50003 PO; +FOLI1TAB11; +FOLI1TAB11 PO; -FOLI1TAB4; -FOLI1TAB4 PO; +METH2.5T48; +METH2.5T48 PO; -METH2.5TA; -METH2.5TA PO; -PANT40TA2 PO; +PANT40TA3 PO; -VITA1CAP40; -VITA1CAP40 PO; +VITA50005; +VITA50005 PO
[2018-10-26 11:35] LABS: BASO # 0.1 10^3/uL (0.0-0.2); BASO % 0.9 % (0.0-1.0); EOS # 0.4 10^3/uL (0.0-0.50); EOS % 6.4 % (0.0-3.0); HEMATOCRIT 40.4 % (36.0-47.0); HEMOGLOBIN 13.2 g/dl (12.0-15.5); LYMPH # 1.5 10^3/uL (1.5-4.5); LYMPH % 26.9 % (24.0-44.0); MEAN CORPUSCULAR HEMOGLOBIN 31.7 pg (27.0-33.0); MEAN CORPUSCULAR HGB CONC 32.7 g/dl (32.0-36.5); MEAN CORPUSCULAR VOLUME 96.9 fl (80.0-96.0); MONO # 0.6 10^3/uL (0.0-0.8); MONO % 10.1 % (0.0-5.0); NEUTROPHILS % 55.3 % (36.0-66.0); PLATELET COUNT, AUTOMATED 279 10^3/uL (150-450); RED BLOOD COUNT 4.17 10^6/uL (4.00-5.40); WHITE BLOOD COUNT 5.5 10^3/uL (4.0-10.0)
[2018-10-26 11:44] LABS: ALBUMIN 3.7 GM/DL (3.2-5.2); ALT/SGPT 40 U/L (12-78); BILIRUBIN,TOTAL 0.4 MG/DL (0.2-1.0); BLOOD UREA NITROGEN 21 MG/DL (7-18); CALCIUM LEVEL 9.8 MG/DL (8.8-10.2); CARBON DIOXIDE LEVEL 30 MEQ/L (21-32); CHLORIDE LEVEL 104 MEQ/L (98-107); CREATININE FOR GFR 0.74 MG/DL (0.55-1.30); GLOMERULAR FILTRATION RATE > 60.0 (>39); GLUCOSE, FASTING 86 MG/DL (70-100); POTASSIUM SERUM 4.5 MEQ/L (3.5-5.1); SODIUM LEVEL 138 MEQ/L (136-145); TOTAL PROTEIN 7.2 GM/DL (6.4-8.2)
[2018-10-26 12:13] LABS: TOTAL 25(OH) VITAMIN D 60.7 NG/ML (30.0-100.0)
[2018-10-26 12:14] LABS: PTH INTACT 93.6 PG/ML (18.5-88.0)
[2018-10-31 12:40] LABS: ALBUMIN 4.06 GM/DL (3.29-5.55); ALBUMIN % 56.4 % (55.8-66.1); ALPHA-1-GLOBULIN % 3.9 % (2.9-4.9); ALPHA-1-GLOBULINS 0.28 GM/DL (0.17-0.41); ALPHA-2-GLOBULINS 0.67 GM/DL (0.42-0.99); ALPHA-2-GLOBULINS % 9.3 % (7.1-11.8); BETA-1-GLOBULINS 0.45 GM/DL (0.28-0.60); BETA-1-GLOBULINS % 6.3 % (4.7-7.2); GAMMA GLOBULIN % 17.1 % (11.1-18.8); GAMMA GLOBULINS 1.23 GM/DL (0.65-1.58)
== END ==
LOC: M SFHCPLAZ 09:22
PROVIDERS: ATTEND Family Medicine
DX: D75.89 Other specified diseases of blood and blood-forming organs (principal); E55.9 Vitamin D deficiency, unspecified

== ENCOUNTER → 2019-01-17 | Outpatient (REF) | payer MEDICARE ==
[~2019-01-17] MED LIST changes: -ASPI81CH PO; +ASPI81CH49 PO
[2019-01-17 16:53] LABS: ALBUMIN 3.8 GM/DL (3.2-5.2); ALT/SGPT 39 U/L (12-78); BILIRUBIN,TOTAL 0.5 MG/DL (0.2-1.0); BLOOD UREA NITROGEN 18 MG/DL (7-18); C REACTIVE PROTEIN QUANTITATIV < 0.30 MG/DL (0.00-0.30); CALCIUM LEVEL 9.7 MG/DL (8.8-10.2); CARBON DIOXIDE LEVEL 30 MEQ/L (21-32); CHLORIDE LEVEL 105 MEQ/L (98-107); CREATININE FOR GFR 0.75 MG/DL (0.55-1.30); GLOMERULAR FILTRATION RATE > 60.0 (>39); GLUCOSE, FASTING 77 MG/DL (70-100); POTASSIUM SERUM 4.2 MEQ/L (3.5-5.1); SODIUM LEVEL 138 MEQ/L (136-145)
[2019-01-17 16:59] LABS: BASO # 0.1 10^3/uL (0.0-0.2); BASO % 1.2 % (0.0-1.0); EOS # 0.2 10^3/uL (0.0-0.50); EOS % 4.1 % (0.0-3.0); HEMATOCRIT 39.4 % (36.0-47.0); HEMOGLOBIN 12.5 g/dl (12.0-15.5); LYMPH # 1.5 10^3/uL (1.5-4.5); LYMPH % 25.6 % (24.0-44.0); MEAN CORPUSCULAR HEMOGLOBIN 31.3 pg (27.0-33.0); MEAN CORPUSCULAR HGB CONC 31.7 g/dl (32.0-36.5); MEAN CORPUSCULAR VOLUME 98.5 fl (80.0-96.0); MONO # 0.7 10^3/uL (0.0-0.8); MONO % 12.5 % (0.0-5.0); NEUTROPHILS # 3.3 10^3/uL (1.8-7.7); NEUTROPHILS % 56.3 % (36.0-66.0); PLATELET COUNT, AUTOMATED 297 10^3/uL (150-450); WHITE BLOOD COUNT 5.8 10^3/uL (4.0-10.0)
[2019-01-17 19:55] LABS: ERYTHROCYTE SEDIMENTATION RATE 33 mm/hr (0-30)
[2019-01-21 00:08] LABS: ANA (HEP2) Positive (.)
== END ==
LOC: M SFHCPLAZ 11:11 → M SFHCCLAY 11:13
PROVIDERS: ATTEND Family Medicine
DX: M06.9 Rheumatoid arthritis, unspecified (principal)

== ENCOUNTER → 2019-03-27 | Outpatient (REF) | payer MEDICARE | LOC: M LABDRAWC 15:27 | PROVIDERS: ATTEND Internal Medicine Rheumatology | DX: M05.79 Rheumatoid arthritis with rheumatoid factor of multiple sites without organ or systems involvement (principal) ==

== ENCOUNTER → 2019-03-27 | Outpatient (REF) | payer MEDICARE ==
[2019-03-27 12:22] LABS: BASO # 0.1 10^3/uL (0.0-0.2); BASO % 0.8 % (0.0-1.0); EOS # 0.1 10^3/uL (0.0-0.50); EOS % 2.3 % (0.0-3.0); HEMATOCRIT 40.2 % (36.0-47.0); LYMPH # 1.2 10^3/uL (1.5-4.5); LYMPH % 19.9 % (24.0-44.0); MEAN CORPUSCULAR HEMOGLOBIN 31.9 pg (27.0-33.0); MEAN CORPUSCULAR HGB CONC 32.3 g/dl (32.0-36.5); MEAN CORPUSCULAR VOLUME 98.8 fl (80.0-96.0); MONO # 0.7 10^3/uL (0.0-0.8); NEUTROPHILS # 4.1 10^3/uL (1.8-7.7); NEUTROPHILS % 65.7 % (36.0-66.0); PLATELET COUNT, AUTOMATED 309 10^3/uL (150-450); RED BLOOD COUNT 4.07 10^6/uL (4.00-5.40); WHITE BLOOD COUNT 6.2 10^3/uL (4.0-10.0)
[2019-03-27 12:24] LABS: HEMATOCRIT 40.2 % (36.0-47.0)
[2019-03-27 13:32] LABS: ALBUMIN 3.5 GM/DL (3.2-5.2); ALT/SGPT 26 U/L (12-78); BILIRUBIN,TOTAL 0.6 MG/DL (0.2-1.0); BLOOD UREA NITROGEN 17 MG/DL (7-18); CALCIUM LEVEL 9.4 MG/DL (8.8-10.2); CARBON DIOXIDE LEVEL 24 MEQ/L (21-32); CHLORIDE LEVEL 106 MEQ/L (98-107); CHOLESTEROL LEVEL 184 MG/DL (<200); CHOLESTEROL RISK RATIO 1.978 (<5); CREATININE FOR GFR 0.72 MG/DL (0.55-1.30); GLOMERULAR FILTRATION RATE > 60.0 (>39); GLUCOSE, FASTING 83 MG/DL (70-100); HDL CHOLESTEROL 93 MG/DL (>40); LDL CHOLESTEROL 80 MG/DL (<100); NON-HDL-C 91 MG/DL; POTASSIUM SERUM 4.3 MEQ/L (3.5-5.1); PTH INTACT 92.7 PG/ML (18.5-88.0); SODIUM LEVEL 140 MEQ/L (136-145); TOTAL 25(OH) VITAMIN D 56.8 NG/ML (30.0-100.0); TOTAL PROTEIN 7.5 GM/DL (6.4-8.2); TRIGLYCERIDES LEVEL 54 MG/DL (<150)
[2019-03-27 14:27] LABS: HEMOGLOBIN A1c 5.6 %
== END ==
LOC: M SFHCCLAY 08:22
PROVIDERS: ATTEND Nurse Practitioner Family
DX: D75.89 Other specified diseases of blood and blood-forming organs (principal); M06.9 Rheumatoid arthritis, unspecified; E78.5 Hyperlipidemia, unspecified; E55.9 Vitamin D deficiency, unspecified; M05.79 Rheumatoid arthritis with rheumatoid factor of multiple sites without organ or systems involvement

== ENCOUNTER 2019-04-12 11:45 | Outpatient (CLI) | payer MEDICARE ==
[~2019-04-12] VITALS: Ht 175.3 cm; Wt 82.3 kg
[2019-04-12 11:50] VITALS: BP 130/64
[2019-04-12] MEDS ORDERED: ZOLEDRONIC ACID 5 MG in APPROPRIATE DILUENT 1 EA IV ONE (12:15)
[2019-04-12 12:50] VITALS: BP 131/59
== END 2019-04-12 13:00 | disposition home or self-care (01) ==
LOC: M INFU 11:45
PROVIDERS: ATTEND Family Medicine
DX: M81.0 Age-related osteoporosis without current pathological fracture (principal)
CPT/HCPCS: 96365; J3489

== ENCOUNTER → 2019-04-30 | Outpatient (CLI) | payer MEDICARE ==
--- NOTE | 2019-05-03 18:05 | SLEEPCENT ---
DATE OF PROCEDURE: 04/30/2019 ORDERED BY: PRIYANKA Denson Nocturnal polysomnography was performed for the titration of pressure therapy in this patient with obstructive sleep apnea syndrome. For testing a Maicoin Eson 2 nasal mask of small size was used, 4 cm of water pressure were applied to the circuit and the lights were extinguished. 7 hours and 32 minutes of data were reviewed. There were 302 minutes of sleep identified. Sleep latency was short at 25 minutes. Rapid eye movement (REM) latency was normal at 136 minutes. Sleep architecture was fairly good. There were two REM cycles noted. Overall sleep efficiency was 67.6% due to a period of wake after sleep onset. The patient's electrocardiogram showed a sinus rhythm with an average heart rate of 68 beats per minute. EEG showed normal waveforms for awake and sleep. Respiratory events were fully palliated with continuous positive airway pressure (CPAP) at a pressure of +9 and remaining measures of sleep physiology were normal. IMPRESSION: Obstructive sleep apnea syndrome (G47.33). RECOMMENDATIONS: Nightly use of pressure therapy 9 cm of water.
== END ==
LOC: M SLEEP 19:35
PROVIDERS: ATTEND Nurse Practitioner Adult Health
DX: G47.33 Obstructive sleep apnea (adult) (pediatric) (principal)

== ENCOUNTER → 2019-07-20 | Outpatient (REF) | payer MEDICARE | LOC: M SFHCPLAZ 13:08 | PROVIDERS: ATTEND Family Medicine | DX: J47.9 Bronchiectasis, uncomplicated (principal) ==

== ENCOUNTER → 2019-08-02 | Outpatient (CLI) | payer MEDICARE ==
--- NOTE | 2019-08-02 12:10 | REP ---
Two-view chest: 08/02/2019. Indication: Dyspnea. Bronchiectasis. Comparison: 02/19/2011. Findings: The hyperinflated lungs are clear. Scarring/fibrosis is stable. There is no pleural effusion. No pneumothorax is present. The cardiac silhouette is unremarkable. Thoracolumbar scoliosis is redemonstrated. Impression: Clear lungs. Sequelae of COPD. Electronically Signed by Jude aWlsh DO 08/02/2019 12:01 P
== END ==
LOC: M RAD 11:30
PROVIDERS: ATTEND Family Medicine
DX: J47.9 Bronchiectasis, uncomplicated (principal)

== ENCOUNTER → 2019-08-15 | Outpatient (REF) | payer MEDICARE ==
[2019-08-15 17:16] LABS: BASO # 0.1 10^3/uL (0.0-0.2); BASO % 0.8 % (0.0-1.0); EOS # 0.3 10^3/uL (0.0-0.5); EOS % 4.3 % (0.0-3.0); HEMATOCRIT 39.2 % (36.0-47.0); HEMOGLOBIN 12.5 g/dl (12.0-15.5); LYMPH # 1.4 10^3/uL (1.5-5.0); LYMPH % 20.1 % (24.0-44.0); MEAN CORPUSCULAR HEMOGLOBIN 31.2 pg (27.0-33.0); MEAN CORPUSCULAR HGB CONC 31.9 g/dl (32.0-36.5); MEAN CORPUSCULAR VOLUME 97.8 fl (80.0-96.0); MONO # 0.7 10^3/uL (0.0-0.8); MONO % 9.5 % (0.0-5.0); NEUTROPHILS # 4.7 10^3/uL (1.5-8.5); NEUTROPHILS % 64.9 % (36.0-66.0); PLATELET COUNT, AUTOMATED 330 10^3/uL (150-450); RED BLOOD COUNT 4.01 10^6/uL (4.00-5.40); WHITE BLOOD COUNT 7.2 10^3/uL (4.0-10.0)
[2019-08-15 17:41] LABS: C REACTIVE PROTEIN QUANTITATIV 0.38 MG/DL (0.00-0.30); CHOLESTEROL RISK RATIO 2.277 (<5); FREE T4 1.12 NG/DL (0.76-1.46); THYROID STIMULATING HORMONE 2.25 uIU/ML (0.358-3.740)
[2019-08-15 19:00] LABS: HEMOGLOBIN A1c 5.3 %
[2019-08-17 14:09] LABS: INSULIN LEVEL 6.8 uIU/mL (2.6-24.9)
[2019-08-18 00:11] LABS: H PYLORI SERUM QUANT IgG ABY 1.15 (0.00-0.79)
== END ==
LOC: M SFHCCLAY 13:59
PROVIDERS: ATTEND Internal Medicine Rheumatology
DX: D75.89 Other specified diseases of blood and blood-forming organs (principal); E78.5 Hyperlipidemia, unspecified; M05.79 Rheumatoid arthritis with rheumatoid factor of multiple sites without organ or systems involvement
CPT/HCPCS: 80061; 82550; 82607; 83036; 83525; 84439; 84443; 85025; 85046; 86140; 86480; 86677; G0463

== ENCOUNTER → 2019-09-19 | Outpatient (REF) | payer MEDICARE ==
[2019-09-19 18:04] LABS: BASO # 0.1 10^3/uL (0.0-0.2); BASO % 1.2 % (0.0-1.0); EOS # 0.3 10^3/uL (0.0-0.5); HEMATOCRIT 40.4 % (36.0-47.0); HEMOGLOBIN 13.2 g/dl (12.0-15.5); LYMPH # 1.4 10^3/uL (1.5-5.0); LYMPH % 21.5 % (24.0-44.0); MEAN CORPUSCULAR HGB CONC 32.7 g/dl (32.0-36.5); MEAN CORPUSCULAR VOLUME 97.8 fl (80.0-96.0); MONO # 0.6 10^3/uL (0.0-0.8); MONO % 9.2 % (0.0-5.0); NEUTROPHILS # 4.2 10^3/uL (1.5-8.5); NEUTROPHILS % 63.9 % (36.0-66.0); PLATELET COUNT, AUTOMATED 307 10^3/uL (150-450); RED BLOOD COUNT 4.13 10^6/uL (4.00-5.40); WHITE BLOOD COUNT 6.5 10^3/uL (4.0-10.0)
[2019-09-19 18:13] LABS: ALBUMIN 3.6 GM/DL (3.2-5.2); ALT/SGPT 25 U/L (12-78); BILIRUBIN,TOTAL 0.5 MG/DL (0.2-1.0); BLOOD UREA NITROGEN 22 MG/DL (7-18); C REACTIVE PROTEIN QUANTITATIV < 0.30 MG/DL (0.00-0.30); CALCIUM LEVEL 9.8 MG/DL (8.8-10.2); CARBON DIOXIDE LEVEL 30 MEQ/L (21-32); CHLORIDE LEVEL 105 MEQ/L (98-107); CREATININE FOR GFR 0.79 MG/DL (0.55-1.30); GLOMERULAR FILTRATION RATE > 60.0 (>39); GLUCOSE, FASTING 85 MG/DL (70-100); POTASSIUM SERUM 4.1 MEQ/L (3.5-5.1); SODIUM LEVEL 140 MEQ/L (136-145); TOTAL PROTEIN 7.4 GM/DL (6.4-8.2)
[2019-09-19 19:10] LABS: ERYTHROCYTE SEDIMENTATION RATE 38 mm/hr (0-30)
[2019-09-21 10:12] LABS: HEPATITIS B SURFACE ANTIBODY NEGATIVE (POSITIVE)
[2019-09-21 10:23] LABS: HEPATITIS B SURFACE ANTIGEN NEGATIVE (NEGATIVE)
[2019-09-21 10:52] LABS: HEPATITIS C VIRUS ABY INDEX 0.1 INDEX (<0.8)
== END ==
LOC: M SFHCCLAY 10:29
PROVIDERS: ATTEND Family Medicine
DX: Z12.39 Encounter for other screening for malignant neoplasm of breast (principal); M06.9 Rheumatoid arthritis, unspecified; Z79.82 Long term (current) use of aspirin; Z79.899 Other long term (current) drug therapy

== ENCOUNTER → 2020-01-16 | Outpatient (REF) | payer MEDICARE ==
[2020-01-16 11:28] LABS: BASO # 0.1 10^3/uL (0.0-0.2); BASO % 0.9 % (0.0-1.0); EOS # 0.3 10^3/uL (0.0-0.5); EOS % 5.2 % (0.0-3.0); HEMATOCRIT 42.1 % (36.0-47.0); HEMOGLOBIN 13.2 g/dl (12.0-15.5); LYMPH # 1.7 10^3/uL (1.5-5.0); MEAN CORPUSCULAR HEMOGLOBIN 31.3 pg (27.0-33.0); MEAN CORPUSCULAR HGB CONC 31.4 g/dl (32.0-36.5); MEAN CORPUSCULAR VOLUME 99.8 fl (80.0-96.0); MONO # 0.7 10^3/uL (0.0-0.8); MONO % 12.4 % (0.0-5.0); NEUTROPHILS # 2.7 10^3/uL (1.5-8.5); NEUTROPHILS % 50.3 % (36.0-66.0); PLATELET COUNT, AUTOMATED 265 10^3/uL (150-450); RED BLOOD COUNT 4.22 10^6/uL (4.00-5.40); WHITE BLOOD COUNT 5.4 10^3/uL (4.0-10.0)
[2020-01-16 11:31] LABS: ALBUMIN 4.1 GM/DL (3.2-5.2); ALT/SGPT 49 U/L (12-78); BILIRUBIN,TOTAL 0.6 MG/DL (0.2-1.0); BLOOD UREA NITROGEN 20 MG/DL (7-18); CALCIUM LEVEL 9.9 MG/DL (8.8-10.2); CARBON DIOXIDE LEVEL 30 MEQ/L (21-32); CHLORIDE LEVEL 106 MEQ/L (98-107); GLOMERULAR FILTRATION RATE > 60.0 (>39); GLUCOSE, FASTING 82 MG/DL (70-100); SODIUM LEVEL 137 MEQ/L (136-145); TOTAL PROTEIN 7.7 GM/DL (6.4-8.2)
[2020-01-16 11:40] LABS: PTH INTACT 99.9 PG/ML (18.5-88.0); TOTAL 25(OH) VITAMIN D 58.1 NG/ML (30.0-100.0)
[2020-01-17 07:55] LABS: ALBUMIN 4.34 GM/DL (3.29-5.55); ALBUMIN % 56.4 % (55.8-66.1); ALPHA-1-GLOBULINS 0.31 GM/DL (0.17-0.41); ALPHA-2-GLOBULINS 0.67 GM/DL (0.42-0.99); ALPHA-2-GLOBULINS % 8.7 % (7.1-11.8); BETA-1-GLOBULINS 0.52 GM/DL (0.28-0.60); BETA-1-GLOBULINS % 6.8 % (4.7-7.2); BETA-2-GLOBULINS 0.53 GM/DL (0.19-0.55); BETA-2-GLOBULINS % 6.9 % (3.2-6.5); GAMMA GLOBULIN % 17.2 % (11.1-18.8); GAMMA GLOBULINS 1.32 GM/DL (0.65-1.58)
== END ==
LOC: M SFHCCLAY 08:35
PROVIDERS: ATTEND Family Medicine
DX: D75.89 Other specified diseases of blood and blood-forming organs (principal); E55.9 Vitamin D deficiency, unspecified; Z79.899 Other long term (current) drug therapy

== ENCOUNTER 2020-04-14 14:36 | Outpatient (CLI) | payer MEDICARE ==
[~2020-04-14] VITALS: Ht 175.3 cm; Wt 84.0 kg
[2020-04-14 14:40] VITALS: BP 136/63
[2020-04-14] MEDS: ZOLEDRONIC ACID 5 MG in IV 1 EA IV ONE ×2 (14:55→15:42)
[2020-04-14] MEDS ORDERED: RECL5INJ2 IV (15:02)
[2020-04-14 15:40] VITALS: BP 130/60
== END 2020-04-14 15:40 | disposition home or self-care (01) ==
LOC: M INFU 14:36
PROVIDERS: ATTEND Family Medicine
DX: M81.0 Age-related osteoporosis without current pathological fracture (principal)
CPT/HCPCS: 96365; J3489

== ENCOUNTER → 2020-07-03 | Outpatient (CLI) | payer MEDICARE ==
[~2020-07-03] MED LIST changes: -ASPI81TA85 PO; +ASPI81TA86 PO; +PANT40TA29 PO; -PANT40TA3 PO; +RECL5INJ2 IV
[2020-07-03 17:10] LABS: BASO # 0.1 10^3/uL (0.0-0.2); BASO % 1.2 % (0.0-1.0); EOS # 0.3 10^3/uL (0.0-0.5); EOS % 5.6 % (0.0-3.0); HEMATOCRIT 41.8 % (36.0-47.0); HEMOGLOBIN 13.5 g/dl (12.0-15.5); LYMPH # 1.5 10^3/uL (1.5-5.0); LYMPH % 25.9 % (24.0-44.0); MEAN CORPUSCULAR HEMOGLOBIN 32.3 pg (27.0-33.0); MEAN CORPUSCULAR HGB CONC 32.3 g/dl (32.0-36.5); MONO # 0.8 10^3/uL (0.0-0.8); MONO % 13.3 % (0.0-5.0); NEUTROPHILS # 3.2 10^3/uL (1.5-8.5); NEUTROPHILS % 53.7 % (36.0-66.0); PLATELET COUNT, AUTOMATED 263 10^3/uL (150-450); RED BLOOD COUNT 4.18 10^6/uL (4.00-5.40); WHITE BLOOD COUNT 5.9 10^3/uL (4.0-10.0)
[2020-07-03 17:34] LABS: ALBUMIN 3.8 GM/DL (3.2-5.2); ALT/SGPT 46 U/L (12-78); BILIRUBIN,TOTAL 0.5 MG/DL (0.2-1.0); BLOOD UREA NITROGEN 18 MG/DL (7-18); CALCIUM LEVEL 9.8 MG/DL (8.8-10.2); CARBON DIOXIDE LEVEL 29 MEQ/L (21-32); CHLORIDE LEVEL 104 MEQ/L (98-107); CREATININE FOR GFR 0.66 MG/DL (0.55-1.30); GLOMERULAR FILTRATION RATE > 60.0 (>39); GLUCOSE, FASTING 88 MG/DL (70-100); NT-PRO BNP 70 PG/ML (<450); POTASSIUM SERUM 4.4 MEQ/L (3.5-5.1); SODIUM LEVEL 139 MEQ/L (136-145); TOTAL PROTEIN 7.6 GM/DL (6.4-8.2)
[2020-07-03 17:42] LABS: PTH INTACT 112.3 PG/ML (18.5-88.0)
[2020-07-03 17:50] LABS: ERYTHROCYTE SEDIMENTATION RATE 26 mm/hr (0-30)
[2020-07-05 14:17] LABS: ANTI DOUBLE STRAND-DNA AB 12 IU/mL (0-9); ANTINUCLEAR ANTIBODIES DIRECT Positive (Negative); RNP ANTIBODIES <0.2 AI (0.0-0.9); SJOGREN'S ANTI SS-A <0.2 AI (0.0-0.9); SJOGREN'S ANTI SS-B <0.2 AI (0.0-0.9); SMITH ANTIBODIES <0.2 AI (0.0-0.9)
== END ==
LOC: M PLALAB 15:35
PROVIDERS: ATTEND Family Medicine
DX: M06.9 Rheumatoid arthritis, unspecified (principal); D75.89 Other specified diseases of blood and blood-forming organs; M81.0 Age-related osteoporosis without current pathological fracture

== ENCOUNTER → 2020-10-07 | Outpatient (REF) | payer MEDICARE ==
[2020-10-07 16:42] LABS: ALBUMIN 3.7 GM/DL (3.2-5.2); ALT/SGPT 49 U/L (12-78); BILIRUBIN,TOTAL 0.5 MG/DL (0.2-1.0); BLOOD UREA NITROGEN 15 MG/DL (7-18); CALCIUM LEVEL 9.6 MG/DL (8.8-10.2); CARBON DIOXIDE LEVEL 31 MEQ/L (21-32); CHLORIDE LEVEL 105 MEQ/L (98-107); CREATININE FOR GFR 0.77 MG/DL (0.55-1.30); GLOMERULAR FILTRATION RATE > 60.0 (>39); GLUCOSE, FASTING 85 MG/DL (70-100); SODIUM LEVEL 139 MEQ/L (136-145); TOTAL PROTEIN 7.3 GM/DL (6.4-8.2)
[2020-10-07 16:43] LABS: BASO # 0.1 10^3/uL (0.0-0.2); BASO % 1.5 % (0.0-1.0); EOS # 0.3 10^3/uL (0.0-0.5); EOS % 4.6 % (0.0-3.0); HEMATOCRIT 42.5 % (36.0-47.0); HEMOGLOBIN 13.4 g/dl (12.0-15.5); LYMPH # 1.9 10^3/uL (1.5-5.0); LYMPH % 34.7 % (24.0-44.0); MEAN CORPUSCULAR HEMOGLOBIN 31.4 pg (27.0-33.0); MEAN CORPUSCULAR HGB CONC 31.5 g/dl (32.0-36.5); MEAN CORPUSCULAR VOLUME 99.5 fl (80.0-96.0); MONO # 0.6 10^3/uL (0.0-0.8); MONO % 11.9 % (0.0-5.0); NEUTROPHILS # 2.5 10^3/uL (1.5-8.5); NEUTROPHILS % 47.1 % (36.0-66.0); PLATELET COUNT, AUTOMATED 287 10^3/uL (150-450); RED BLOOD COUNT 4.27 10^6/uL (4.00-5.40); WHITE BLOOD COUNT 5.4 10^3/uL (4.0-10.0)
[2020-10-07 17:28] LABS: ERYTHROCYTE SEDIMENTATION RATE 23 mm/hr (0-30)
[2020-10-13 16:07] LABS: ANTI DS-DNA AB Positive (Negative)
== END ==
LOC: M LABDRAWC 15:51
PROVIDERS: ATTEND Internal Medicine
DX: M05.79 Rheumatoid arthritis with rheumatoid factor of multiple sites without organ or systems involvement (principal); R76.8 Other specified abnormal immunological findings in serum

== ENCOUNTER → 2020-12-24 | Outpatient (REF) | payer MEDICARE ==
[2020-12-24 16:53] LABS: ALBUMIN 3.8 GM/DL (3.2-5.2); ALT/SGPT 86 U/L (12-78); BILIRUBIN,TOTAL 0.5 MG/DL (0.2-1.0); BLOOD UREA NITROGEN 20 MG/DL (7-18); CALCIUM LEVEL 9.8 MG/DL (8.8-10.2); CARBON DIOXIDE LEVEL 31 MEQ/L (21-32); CHLORIDE LEVEL 106 MEQ/L (98-107); CHOLESTEROL LEVEL 222 MG/DL (<200); CHOLESTEROL RISK RATIO 2.921 (<5); CREATININE FOR GFR 0.71 MG/DL (0.55-1.30); FREE T4 0.95 NG/DL (0.76-1.46); GLOMERULAR FILTRATION RATE > 60.0 (>39); GLUCOSE, FASTING 88 MG/DL (70-100); HDL CHOLESTEROL 76 MG/DL (>40); LDL CHOLESTEROL 128 MG/DL (<100); NON-HDL-C 146 MG/DL; POTASSIUM SERUM 4.2 MEQ/L (3.5-5.1); SODIUM LEVEL 140 MEQ/L (136-145); TOTAL PROTEIN 7.3 GM/DL (6.4-8.2); TRIGLYCERIDES LEVEL 88 MG/DL (<150)
[2020-12-24 17:16] LABS: BASO # 0.1 10^3/uL (0.0-0.2); BASO % 1.1 % (0.0-1.0); EOS # 0.4 10^3/uL (0.0-0.5); EOS % 5.8 % (0.0-3.0); HEMATOCRIT 41.4 % (36.0-47.0); HEMOGLOBIN 13.4 g/dl (12.0-15.5); LYMPH # 1.9 10^3/uL (1.5-5.0); LYMPH % 31.3 % (24.0-44.0); MEAN CORPUSCULAR HEMOGLOBIN 32.4 pg (27.0-33.0); MEAN CORPUSCULAR HGB CONC 32.4 g/dl (32.0-36.5); MEAN CORPUSCULAR VOLUME 100.2 fl (80.0-96.0); MONO # 0.7 10^3/uL (0.0-0.8); MONO % 10.6 % (2.0-8.0); NEUTROPHILS # 3.1 10^3/uL (1.5-8.5); NEUTROPHILS % 50.6 % (36.0-66.0); PLATELET COUNT, AUTOMATED 275 10^3/uL (150-450); RED BLOOD COUNT 4.13 10^6/uL (4.00-5.40); WHITE BLOOD COUNT 6.2 10^3/uL (4.0-10.0)
[2020-12-24 17:29] LABS: VITAMIN B12 LEVEL 989 PG/ML (247-911)
== END ==
LOC: M SFHCCLAY 09:23
PROVIDERS: ATTEND Family Medicine
DX: D75.89 Other specified diseases of blood and blood-forming organs (principal); E78.5 Hyperlipidemia, unspecified; M06.9 Rheumatoid arthritis, unspecified; R76.8 Other specified abnormal immunological findings in serum; M05.79 Rheumatoid arthritis with rheumatoid factor of multiple sites without organ or systems involvement

== ENCOUNTER → 2021-01-09 | Outpatient (REF) | payer MEDICARE ==
[2021-01-09 16:17] LABS: ALBUMIN 3.8 GM/DL (3.2-5.2); ALT/SGPT 44 U/L (12-78); BILIRUBIN,TOTAL 0.5 MG/DL (0.2-1.0); BLOOD UREA NITROGEN 16 MG/DL (7-18); CALCIUM LEVEL 9.9 MG/DL (8.8-10.2); CARBON DIOXIDE LEVEL 33 MEQ/L (21-32); CHLORIDE LEVEL 103 MEQ/L (98-107); CREATININE FOR GFR 0.79 MG/DL (0.55-1.30); GLOMERULAR FILTRATION RATE > 60.0 (>39); GLUCOSE, FASTING 111 MG/DL (70-100); NT-PRO BNP 38 PG/ML (<450); POTASSIUM SERUM 3.7 MEQ/L (3.5-5.1); SODIUM LEVEL 139 MEQ/L (136-145); TOTAL PROTEIN 7.5 GM/DL (6.4-8.2)
== END ==
LOC: M SFHCPLAZ 11:11
PROVIDERS: ATTEND Family Medicine
DX: M06.9 Rheumatoid arthritis, unspecified (principal)

== ENCOUNTER 2021-04-24 14:22 | Outpatient (CLI) | payer MEDICARE ==
[~2021-04-24] VITALS: Ht 165.1 cm; Wt 84.7 kg
[~2021-04-24 14:22] MED LIST changes: +FERR324T21 PO; -FERR325T16 PO
[2021-04-24 14:25] VITALS: BP 146/69
[2021-04-24] MEDS ORDERED: ZOLEDRONIC ACID 5 MG in IV 1 EA IV ONE (14:30)
[2021-04-24 15:05] VITALS: BP 119/62
== END 2021-04-24 15:20 | disposition home or self-care (01) ==
LOC: M INFU 14:22
PROVIDERS: ATTEND Family Medicine
DX: M81.0 Age-related osteoporosis without current pathological fracture (principal)
CPT/HCPCS: 96365; J3489

== ENCOUNTER → 2021-05-07 | Outpatient (REF) | payer MEDICARE ==
[2021-05-07 16:19] LABS: BASO # 0.1 10^3/uL (0.0-0.2); EOS # 0.2 10^3/uL (0.0-0.5); EOS % 3.6 % (0.0-3.0); HEMATOCRIT 41.9 % (36.0-47.0); HEMOGLOBIN 13.6 g/dl (12.0-15.5); LYMPH # 1.9 10^3/uL (1.5-5.0); LYMPH % 32.6 % (24.0-44.0); MEAN CORPUSCULAR HEMOGLOBIN 32.3 pg (27.0-33.0); MEAN CORPUSCULAR HGB CONC 32.5 g/dl (32.0-36.5); MEAN CORPUSCULAR VOLUME 99.5 fl (80.0-96.0); MONO # 0.7 10^3/uL (0.0-0.8); MONO % 11.2 % (2.0-8.0); NEUTROPHILS % 51.3 % (36.0-66.0); PLATELET COUNT, AUTOMATED 271 10^3/uL (150-450); RED BLOOD COUNT 4.21 10^6/uL (4.00-5.40); WHITE BLOOD COUNT 5.8 10^3/uL (4.0-10.0)
[2021-05-07 16:49] LABS: MAGNESIUM LEVEL 2.3 MG/DL (1.8-2.4); TOTAL PROTEIN 7.3 GM/DL (6.4-8.2)
[2021-05-07 16:52] LABS: PTH INTACT 138.1 PG/ML (18.5-88.0)
[2021-05-08 10:44] LABS: ALBUMIN 4.09 GM/DL (3.29-5.55); ALPHA-1-GLOBULIN % 4.3 % (2.9-4.9); ALPHA-1-GLOBULINS 0.31 GM/DL (0.17-0.41); ALPHA-2-GLOBULINS 0.73 GM/DL (0.42-0.99); BETA-1-GLOBULINS 0.46 GM/DL (0.28-0.60); BETA-1-GLOBULINS % 6.3 % (4.7-7.2); BETA-2-GLOBULINS % 6.8 % (3.2-6.5); GAMMA GLOBULIN % 16.6 % (11.1-18.8); GAMMA GLOBULINS 1.21 GM/DL (0.65-1.58)
== END ==
LOC: M SFHCCLAY 09:30
PROVIDERS: ATTEND Family Medicine
DX: D75.89 Other specified diseases of blood and blood-forming organs (principal); I50.32 Chronic diastolic (congestive) heart failure; E55.9 Vitamin D deficiency, unspecified

== ENCOUNTER → 2021-05-29 | Outpatient (REF) | payer MEDICARE ==
[2021-05-29 15:43] LABS: BASO # 0.1 10^3/uL (0.0-0.2); BASO % 1.1 % (0.0-1.0); EOS # 0.2 10^3/uL (0.0-0.5); EOS % 3.5 % (0.0-3.0); HEMATOCRIT 41.3 % (36.0-47.0); HEMOGLOBIN 13.5 g/dl (12.0-15.5); LYMPH % 31.4 % (24.0-44.0); MEAN CORPUSCULAR HEMOGLOBIN 32.3 pg (27.0-33.0); MEAN CORPUSCULAR HGB CONC 32.7 g/dl (32.0-36.5); MEAN CORPUSCULAR VOLUME 98.8 fl (80.0-96.0); MONO # 0.6 10^3/uL (0.0-0.8); MONO % 10.3 % (2.0-8.0); NEUTROPHILS # 3.3 10^3/uL (1.5-8.5); NEUTROPHILS % 53.4 % (36.0-66.0); PLATELET COUNT, AUTOMATED 280 10^3/uL (150-450); RED BLOOD COUNT 4.18 10^6/uL (4.00-5.40); WHITE BLOOD COUNT 6.2 10^3/uL (4.0-10.0)
[2021-05-29 16:15] LABS: ALBUMIN 3.8 GM/DL (3.2-5.2); ALT/SGPT 45 U/L (12-78); BILIRUBIN,TOTAL 0.5 MG/DL (0.2-1.0); BLOOD UREA NITROGEN 12 MG/DL (7-18); CALCIUM LEVEL 9.6 MG/DL (8.8-10.2); CARBON DIOXIDE LEVEL 32 MEQ/L (21-32); CHLORIDE LEVEL 103 MEQ/L (98-107); CREATININE FOR GFR 0.75 MG/DL (0.55-1.30); GLOMERULAR FILTRATION RATE > 60.0 (>39); GLUCOSE, FASTING 117 MG/DL (70-100); NT-PRO BNP 70 PG/ML (<450); POTASSIUM SERUM 3.9 MEQ/L (3.5-5.1); SODIUM LEVEL 139 MEQ/L (136-145); TOTAL PROTEIN 7.3 GM/DL (6.4-8.2)
[2021-05-29 16:23] LABS: ERYTHROCYTE SEDIMENTATION RATE 27 mm/hr (0-30)
== END ==
LOC: M SFHCCLAY 10:22
PROVIDERS: ATTEND Internal Medicine Rheumatology
DX: I50.32 Chronic diastolic (congestive) heart failure (principal); M05.79 Rheumatoid arthritis with rheumatoid factor of multiple sites without organ or systems involvement

== ENCOUNTER → 2021-07-28 | Outpatient (CLI) | payer MEDICARE ==
--- NOTE | 2021-07-29 17:10 | REPVR ---
PROCEDURE INFORMATION: Exam: MR Lumbar Spine Without Contrast Exam date and time: 07/28/2021 10:32 AM Age: 81 years old Clinical indication: Low back pain; Additional info: R/O stenosis low back pain TECHNIQUE: Imaging protocol: Multiplanar magnetic resonance images of the lumbar spine without intravenous contrast. COMPARISON: CR SPINE LS COMPLETE 08/31/2017 11:24 AM FINDINGS: Acute mild compression fracture of the superior endplate of T12 and possible nondisplaced fracture of the inferior endplate of T11. Lumbar vertebral body heights are intact. No cord compression. No abnormal cord signal. Conus medullaris terminates at the L1 level. Multilevel small T2 hyperintense perineural cysts. Partial fatty atrophy of posterior paravertebral musculature. L1-L2: Broad-based disc bulge and facet hypertrophy cause mild bilateral foraminal narrowing and mild canal narrowing. L2-L3: Broad-based disc bulge and facet hypertrophy cause mild to moderate canal narrowing and mild bilateral foraminal narrowing. L3-L4: Broad-based disc bulge and facet hypertrophy cause mild canal narrowing and mild bilateral foraminal narrowing. L4-L5: Posterior disc osteophyte complex and facet hypertrophy cause moderate bilateral foraminal narrowing. No significant canal narrowing. L5-S1: No significant canal or foraminal narrowing. IMPRESSION: 1. Acute mild compression fracture of the superior endplate of T12 and possible nondisplaced fracture of the inferior endplate of T11 2. Spondylotic changes of the visualized spine, as above. Electronically signed by: Gamal Das On 07/29/2021 17:09:40 PM
== END ==
LOC: M PLAIMG 09:26
PROVIDERS: ATTEND Orthopaedic Surgery
DX: M54.59 Other low back pain (principal)

== ENCOUNTER → 2021-08-31 | Outpatient (CLI) | payer MEDICARE ==
--- NOTE | 2021-08-31 09:48 | REPVR ---
PROCEDURE INFORMATION: Exam: MR Cervical Spine Without Contrast Exam date and time: 08/31/2021 8:45 AM Age: 81 years old Clinical indication: Neck pain; Additional info: C disc degeneration TECHNIQUE: Imaging protocol: Multiplanar magnetic resonance images of the cervical spine without contrast. COMPARISON: None available. FINDINGS: Vertebrae: There is 2 mm of grade 1 retrolisthesis of C3 with respect to C4. Normal vertebral body alignment is otherwise preserved. Vertebral body heights are within normal limits. There is moderate to severe intervertebral disc space loss at C4/5 and C5/6. Spinal cord: Normal signal. No cord compression. C2-C3: There is a shallow disc osteophyte complex. There is mild right and moderate left facet hypertrophy. The spinal canal and neural foramina are patent. C3-C4: There is a diffuse disc osteophyte complex/uncovering related to listhesis. There is moderate facet hypertrophy asymmetric to the right. There is mild bilateral neural foraminal narrowing. C4-C5: There is a diffuse disc osteophyte complex. There is mild right and moderate left facet hypertrophy. There is mild right and moderate left neural foraminal narrowing. C5-C6: There is a shallow disc osteophyte complex. There is mild facet hypertrophy. The spinal canal and neural foramina are patent. C6-C7: There is a shallow disc osteophyte complex. There is [id number] facet hypertrophy. The spinal canal and neural foramina are patent. C7-T1: There is a shallow disc osteophyte complex. There is moderate facet hypertrophy. The spinal canal and neural foramina are patent. Soft tissues: Unremarkable. Vertebral arteries: Expected flow voids in the vertebral arteries. IMPRESSION: Degenerative disc disease and spondylosis. At C4/5, changes contribute to mild right and moderate left neural foraminal narrowing. Electronically signed by: Meri Vasques On 08/31/2021 09:47:32 AM
== END ==
LOC: M PLAIMG 07:57
PROVIDERS: ATTEND Physical Medicine & Rehabilitation
DX: M50.30 Other cervical disc degeneration, unspecified cervical region (principal)

== ENCOUNTER → 2021-09-23 | Outpatient (REF) | payer MEDICARE | LOC: M LABDRAWC 15:45 | PROVIDERS: ATTEND Physical Medicine & Rehabilitation | DX: M51.36 Other intervertebral disc degeneration, lumbar region (principal) ==

== ENCOUNTER → 2021-09-23 | Outpatient (REF) | payer MEDICARE ==
[2021-09-23 16:12] LABS: BASO # 0.1 10^3/uL (0.0-0.2); BASO % 1.2 % (0.0-1.0); EOS # 0.2 10^3/uL (0.0-0.5); EOS % 3.3 % (0.0-3.0); HEMATOCRIT 41.9 % (36.0-47.0); HEMOGLOBIN 13.5 g/dl (12.0-15.5); LYMPH # 1.9 10^3/uL (1.5-5.0); MEAN CORPUSCULAR HEMOGLOBIN 32.1 pg (27.0-33.0); MEAN CORPUSCULAR HGB CONC 32.2 g/dl (32.0-36.5); MEAN CORPUSCULAR VOLUME 99.8 fl (80.0-96.0); MONO # 0.7 10^3/uL (0.0-0.8); MONO % 11.6 % (2.0-8.0); NEUTROPHILS # 3.2 10^3/uL (1.5-8.5); NEUTROPHILS % 52.7 % (36.0-66.0); PLATELET COUNT, AUTOMATED 307 10^3/uL (150-450)
[2021-09-23 16:36] LABS: ERYTHROCYTE SEDIMENTATION RATE 37 mm/hr (0-30)
[2021-09-23 16:43] LABS: ALBUMIN 3.8 GM/DL (3.2-5.2); ALT/SGPT 48 U/L (12-78); BILIRUBIN,TOTAL 0.6 MG/DL (0.2-1.0); BLOOD UREA NITROGEN 14 MG/DL (7-18); CALCIUM LEVEL 10.2 MG/DL (8.8-10.2); CARBON DIOXIDE LEVEL 31 MEQ/L (21-32); CHLORIDE LEVEL 105 MEQ/L (98-107); CREATININE FOR GFR 0.82 MG/DL (0.55-1.30); GLOMERULAR FILTRATION RATE > 60.0 (>39); GLUCOSE, FASTING 98 MG/DL (70-100); POTASSIUM SERUM 4.2 MEQ/L (3.5-5.1); SODIUM LEVEL 140 MEQ/L (136-145); TOTAL PROTEIN 7.6 GM/DL (6.4-8.2)
== END ==
LOC: M SFHCCLAY 10:20
PROVIDERS: ATTEND Internal Medicine Rheumatology
DX: M05.79 Rheumatoid arthritis with rheumatoid factor of multiple sites without organ or systems involvement (principal); M51.36 Other intervertebral disc degeneration, lumbar region

== ENCOUNTER → 2021-11-03 | Outpatient (CLI) | payer MEDICARE | LOC: M PLAIMG 11:02 | PROVIDERS: ATTEND Physical Medicine & Rehabilitation | DX: M50.223 Other cervical disc displacement at C6-C7 level (principal) ==

== ENCOUNTER → 2021-11-03 | Outpatient (CLI) | payer MEDICARE ==
[2021-11-03 15:34] LABS: HEMATOCRIT 40.7 % (36.0-47.0)
[2021-11-03 16:09] LABS: ALBUMIN 3.8 GM/DL (3.2-5.2); BLOOD UREA NITROGEN 15 MG/DL (7-18); CALCIUM LEVEL 10.2 MG/DL (8.8-10.2); CARBON DIOXIDE LEVEL 30 MEQ/L (21-32); CHLORIDE LEVEL 105 MEQ/L (98-107); CHOLESTEROL LEVEL 177 MG/DL (<200); CREATININE FOR GFR 0.76 MG/DL (0.55-1.30); FERRITIN 106 NG/ML (8-252); GLOMERULAR FILTRATION RATE > 60.0 (>39); GLUCOSE, FASTING 96 MG/DL (70-100); HDL CHOLESTEROL 75 MG/DL (>40); LDL CHOLESTEROL 81 MG/DL (<100); NON-HDL-C 102 MG/DL; NT-PRO BNP 97 PG/ML (<450); POTASSIUM SERUM 4.4 MEQ/L (3.5-5.1); SODIUM LEVEL 141 MEQ/L (136-145); TRIGLYCERIDES LEVEL 107 MG/DL (<150)
[2021-11-03 16:14] LABS: PTH INTACT 156.7 PG/ML (18.5-88.0)
[2021-11-03 16:15] LABS: VITAMIN B12 LEVEL 383 PG/ML (247-911)
== END ==
LOC: M PLALAB 11:06
PROVIDERS: ATTEND Family Medicine
DX: E78.5 Hyperlipidemia, unspecified (principal); E55.9 Vitamin D deficiency, unspecified; I50.32 Chronic diastolic (congestive) heart failure; M06.9 Rheumatoid arthritis, unspecified

== ENCOUNTER → 2021-12-02 | Outpatient (CLI) | payer MEDICARE | LOC: M RAD 08:59 | PROVIDERS: ATTEND Family Medicine | DX: R27.0 Ataxia, unspecified (principal) ==

== ENCOUNTER → 2021-12-16 | Outpatient (REF) | payer MEDICARE ==
[2021-12-16 17:50] LABS: BASO # 0.1 10^3/uL (0.0-0.2); BASO % 1.1 % (0.0-1.0); EOS # 0.2 10^3/uL (0.0-0.5); EOS % 2.9 % (0.0-3.0); HEMATOCRIT 42.9 % (36.0-47.0); HEMOGLOBIN 13.7 g/dl (12.0-15.5); LYMPH % 29.9 % (24.0-44.0); MEAN CORPUSCULAR HEMOGLOBIN 32.3 pg (27.0-33.0); MEAN CORPUSCULAR HGB CONC 31.9 g/dl (32.0-36.5); MEAN CORPUSCULAR VOLUME 101.2 fl (80.0-96.0); MONO # 0.7 10^3/uL (0.0-0.8); MONO % 11.1 % (2.0-8.0); NEUTROPHILS # 3.6 10^3/uL (1.5-8.5); NEUTROPHILS % 54.7 % (36.0-66.0); PLATELET COUNT, AUTOMATED 316 10^3/uL (150-450); RED BLOOD COUNT 4.24 10^6/uL (4.00-5.40); WHITE BLOOD COUNT 6.6 10^3/uL (4.0-10.0)
[2021-12-16 18:14] LABS: ALBUMIN 4.2 GM/DL (3.2-5.2); ALT/SGPT 41 U/L (12-78); BILIRUBIN,TOTAL 0.6 MG/DL (0.2-1.0); BLOOD UREA NITROGEN 10 MG/DL (7-18); CALCIUM LEVEL 10.2 MG/DL (8.8-10.2); CARBON DIOXIDE LEVEL 30 MEQ/L (21-32); CHLORIDE LEVEL 103 MEQ/L (98-107); CREATININE FOR GFR 0.84 MG/DL (0.55-1.30); GLOMERULAR FILTRATION RATE > 60.0 (>39); GLUCOSE, FASTING 102 MG/DL (70-100); POTASSIUM SERUM 4.2 MEQ/L (3.5-5.1); SODIUM LEVEL 139 MEQ/L (136-145); TOTAL PROTEIN 7.7 GM/DL (6.4-8.2)
[2021-12-16 19:53] LABS: ERYTHROCYTE SEDIMENTATION RATE 15 mm/hr (0-30)
== END ==
LOC: M SFHCCLAY 15:35
PROVIDERS: ATTEND Internal Medicine Rheumatology
DX: M05.79 Rheumatoid arthritis with rheumatoid factor of multiple sites without organ or systems involvement (principal); R76.8 Other specified abnormal immunological findings in serum; M81.0 Age-related osteoporosis without current pathological fracture; R53.81 Other malaise; M89.49 Other hypertrophic osteoarthropathy, multiple sites; Z79.899 Other long term (current) drug therapy

== ENCOUNTER → 2022-02-17 | Outpatient (REF) | payer MEDICARE ==
[2022-02-17 16:03] LABS: BASO # 0.1 10^3/uL (0.0-0.2); BASO % 0.9 % (0.0-1.0); EOS # 0.2 10^3/uL (0.0-0.5); EOS % 3.4 % (0.0-3.0); HEMATOCRIT 40.5 % (36.0-47.0); LYMPH # 1.9 10^3/uL (1.5-5.0); LYMPH % 31.5 % (24.0-44.0); MEAN CORPUSCULAR HGB CONC 32.1 g/dl (32.0-36.5); MEAN CORPUSCULAR VOLUME 99.8 fl (80.0-96.0); MONO # 0.7 10^3/uL (0.0-0.8); MONO % 11.2 % (2.0-8.0); NEUTROPHILS # 3.1 10^3/uL (1.5-8.5); NEUTROPHILS % 52.8 % (36.0-66.0); PLATELET COUNT, AUTOMATED 285 10^3/uL (150-450); RED BLOOD COUNT 4.06 10^6/uL (4.00-5.40); WHITE BLOOD COUNT 5.9 10^3/uL (4.0-10.0)
[2022-02-17 16:27] LABS: ERYTHROCYTE SEDIMENTATION RATE 25 mm/hr (0-30)
[2022-02-17 16:44] LABS: MAGNESIUM LEVEL 2.2 MG/DL (1.8-2.4)
[2022-02-17 16:47] LABS: TOTAL 25(OH) VITAMIN D 35.2 NG/ML (30.0-100.0)
[2022-02-17 16:48] LABS: PTH INTACT 173.3 PG/ML (18.5-88.0)
[2022-02-17 17:06] LABS: ALBUMIN 3.9 GM/DL (3.2-5.2); ALT/SGPT 24 U/L (12-78); BILIRUBIN,TOTAL 0.6 MG/DL (0.2-1.0); BLOOD UREA NITROGEN 11 MG/DL (7-18); CALCIUM LEVEL 10.4 MG/DL (8.8-10.2); CARBON DIOXIDE LEVEL 31 MEQ/L (21-32); CHLORIDE LEVEL 105 MEQ/L (98-107); CREATININE FOR GFR 0.64 MG/DL (0.55-1.30); GLOMERULAR FILTRATION RATE > 60.0 (>39); GLUCOSE, FASTING 90 MG/DL (70-100); SODIUM LEVEL 141 MEQ/L (136-145); TOTAL PROTEIN 7.2 GM/DL (6.4-8.2)
== END ==
LOC: M SFHCCLAY 09:37
PROVIDERS: ATTEND Internal Medicine Rheumatology
DX: M05.79 Rheumatoid arthritis with rheumatoid factor of multiple sites without organ or systems involvement (principal); R76.8 Other specified abnormal immunological findings in serum; M81.0 Age-related osteoporosis without current pathological fracture; Z79.899 Other long term (current) drug therapy; R53.81 Other malaise; M89.49 Other hypertrophic osteoarthropathy, multiple sites; D50.9 Iron deficiency anemia, unspecified

== ENCOUNTER → 2022-04-01 | Outpatient (CLI) | payer MEDICARE | LOC: M WHC 13:01 | PROVIDERS: ATTEND Family Medicine | DX: Z12.31 Encounter for screening mammogram for malignant neoplasm of breast (principal); Z78.0 Asymptomatic menopausal state; Z80.9 Family history of malignant neoplasm, unspecified ==

== ENCOUNTER 2022-05-11 09:45 | Outpatient (CLI) | payer MEDICARE ==
[~2022-05-11] VITALS: Ht 165.1 cm; Wt 81.8 kg
[2022-05-11 09:45] VITALS: BP 148/69
[~2022-05-11 09:45] MED LIST changes: +ZOLEDRONIC ACID 5 MG in IV 1 EA IV ONE
[2022-05-11 10:44] VITALS: BP 112/57
== END 2022-05-11 10:45 | disposition home or self-care (01) ==
LOC: M INFU 09:45
PROVIDERS: ATTEND Family Medicine
DX: M81.0 Age-related osteoporosis without current pathological fracture (principal)
CPT/HCPCS: 96365; J3489

== ENCOUNTER → 2022-07-14 | Outpatient (REF) | payer MEDICARE ==
[~2022-07-14] MED LIST changes: -ZOLEDRONIC ACID 5 MG in IV 1 EA IV ONE
[2022-07-14 17:30] LABS: BASO # 0.1 10^3/uL (0.0-0.2); BASO % 1.2 % (0.0-1.0); EOS # 0.2 10^3/uL (0.0-0.5); EOS % 3.7 % (0.0-3.0); HEMATOCRIT 41.7 % (36.0-47.0); LYMPH # 1.8 10^3/uL (1.5-5.0); LYMPH % 30.4 % (24.0-44.0); MEAN CORPUSCULAR HEMOGLOBIN 31.4 pg (27.0-33.0); MEAN CORPUSCULAR HGB CONC 31.2 g/dl (32.0-36.5); MEAN CORPUSCULAR VOLUME 100.7 fl (80.0-96.0); MONO # 0.5 10^3/uL (0.0-0.8); MONO % 8.2 % (2.0-8.0); NEUTROPHILS # 3.4 10^3/uL (1.5-8.5); NEUTROPHILS % 56.2 % (36.0-66.0); PLATELET COUNT, AUTOMATED 282 10^3/uL (150-450); RED BLOOD COUNT 4.14 10^6/uL (4.00-5.40)
[2022-07-14 17:32] LABS: HEMATOCRIT 40.6 % (36.0-47.0)
[2022-07-14 18:09] LABS: BLOOD UREA NITROGEN 14 MG/DL (7-18); CARBON DIOXIDE LEVEL 30 MEQ/L (21-32); CHLORIDE LEVEL 104 MEQ/L (98-107); CREATININE FOR GFR 0.69 MG/DL (0.55-1.30); GLOMERULAR FILTRATION RATE > 60.0 (>32); GLUCOSE, FASTING 81 MG/DL (70-100); POTASSIUM SERUM 4.5 MEQ/L (3.5-5.1); SODIUM LEVEL 138 MEQ/L (136-145)
[2022-07-14 18:10] LABS: ALBUMIN 3.6 GM/DL (3.2-5.2); ALT/SGPT 24 U/L (12-78); BILIRUBIN,TOTAL 0.8 MG/DL (0.2-1.0); CHOLESTEROL LEVEL 160 MG/DL (<200); CHOLESTEROL RISK RATIO 2.318 (<5); FREE T4 1.01 NG/DL (0.76-1.46); HDL CHOLESTEROL 69 MG/DL (>40); LDL CHOLESTEROL 70 MG/DL (<100); NON-HDL-C 91 MG/DL; NT-PRO BNP 65 PG/ML (<450); TOTAL PROTEIN 7.2 GM/DL (6.4-8.2); TRIGLYCERIDES LEVEL 106 MG/DL (<150)
[2022-07-14 18:38] LABS: PTH INTACT 103.5 PG/ML (18.5-88.0); VITAMIN B12 LEVEL 394 PG/ML (247-911)
[2022-07-14 20:38] LABS: ERYTHROCYTE SEDIMENTATION RATE 29 mm/hr (0-30)
== END ==
LOC: M SFHCCLAY 09:59
PROVIDERS: ATTEND Family Medicine
DX: D75.89 Other specified diseases of blood and blood-forming organs (principal); E78.5 Hyperlipidemia, unspecified; I50.32 Chronic diastolic (congestive) heart failure; E55.9 Vitamin D deficiency, unspecified; M89.49 Other hypertrophic osteoarthropathy, multiple sites; R53.81 Other malaise; Z79.899 Other long term (current) drug therapy; M81.0 Age-related osteoporosis without current pathological fracture; R76.8 Other specified abnormal immunological findings in serum; M05.79 Rheumatoid arthritis with rheumatoid factor of multiple sites without organ or systems involvement

== ENCOUNTER → 2022-10-20 | Outpatient (REF) | payer MEDICARE ==
[2022-10-20 11:38] LABS: BASO # 0.1 10^3/uL (0.0-0.2); BASO % 1.1 % (0.0-1.0); EOS # 0.2 10^3/uL (0.0-0.5); EOS % 3.5 % (0.0-3.0); HEMATOCRIT 42.9 % (36.0-47.0); HEMOGLOBIN 13.7 g/dl (12.0-15.5); LYMPH % 30.8 % (24.0-44.0); MEAN CORPUSCULAR HEMOGLOBIN 31.9 pg (27.0-33.0); MEAN CORPUSCULAR HGB CONC 31.9 g/dl (32.0-36.5); MONO # 0.5 10^3/uL (0.0-0.8); NEUTROPHILS # 3.7 10^3/uL (1.5-8.5); NEUTROPHILS % 56.4 % (36.0-66.0); PLATELET COUNT, AUTOMATED 318 10^3/uL (150-450); RED BLOOD COUNT 4.29 10^6/uL (4.00-5.40); WHITE BLOOD COUNT 6.5 10^3/uL (4.0-10.0)
[2022-10-20 11:55] LABS: HEMOGLOBIN A1c 5.2 % (4.0-6.0)
[2022-10-20 12:01] LABS: MAGNESIUM LEVEL 2.1 MG/DL (1.8-2.4)
[2022-10-20 12:04] LABS: ALBUMIN 3.9 G/DL (3.2-5.2); ALKALINE PHOSPHATASE 84 U/L (46-116); ALT/SGPT 20 U/L (7.0-40); AST/SGOT 26 U/L (<34); BILIRUBIN,TOTAL 0.9 MG/DL (0.3-1.2); BLOOD UREA NITROGEN 15 MG/DL (9-23); CALCIUM LEVEL 10.5 MG/DL (8.3-10.6); CARBON DIOXIDE LEVEL 26 MMOL/L (20-31); CHLORIDE LEVEL 102 MMOL/L (98-107); CREATININE FOR GFR 0.75 MG/DL (0.55-1.30); GLOMERULAR FILTRATION RATE > 60.0 (>32); GLUCOSE, FASTING 90 MG/DL (74-106); POTASSIUM SERUM 4.3 MMOL/L (3.5-5.1); SODIUM LEVEL 141 MMOL/L (136-145); TOTAL PROTEIN 7.4 G/DL (5.7-8.2)
[2022-10-20 12:06] LABS: FERRITIN 100.1 NG/ML (7.3-270.7)
[2022-10-22 17:07] LABS: INSULIN LEVEL 13.2 uIU/mL (2.6-24.9)
== END ==
LOC: M SFHCCLAY 09:25
PROVIDERS: ATTEND Family Medicine
DX: R73.01 Impaired fasting glucose (principal); D75.89 Other specified diseases of blood and blood-forming organs; I50.32 Chronic diastolic (congestive) heart failure; M05.79 Rheumatoid arthritis with rheumatoid factor of multiple sites without organ or systems involvement; M81.0 Age-related osteoporosis without current pathological fracture; Z79.899 Other long term (current) drug therapy; M89.49 Other hypertrophic osteoarthropathy, multiple sites; R53.81 Other malaise

== ENCOUNTER → 2023-02-16 | Outpatient (REF) | payer MEDICARE ==
[2023-02-16 18:13] LABS: BASO # 0.1 10^3/uL (0.0-0.2); BASO % 1.2 % (0.0-1.0); EOS # 0.2 10^3/uL (0.0-0.5); EOS % 4.6 % (0.0-3.0); HEMATOCRIT 41.6 % (36.0-47.0); HEMOGLOBIN 13.3 g/dl (12.0-15.5); LYMPH # 1.3 10^3/uL (1.5-5.0); LYMPH % 27.4 % (24.0-44.0); MEAN CORPUSCULAR VOLUME 100.2 fl (80.0-96.0); MONO # 0.5 10^3/uL (0.0-0.8); MONO % 10.2 % (2.0-8.0); NEUTROPHILS # 2.7 10^3/uL (1.5-8.5); NEUTROPHILS % 56.2 % (36.0-66.0); PLATELET COUNT, AUTOMATED 259 10^3/uL (150-450); RED BLOOD COUNT 4.15 10^6/uL (4.00-5.40); WHITE BLOOD COUNT 4.8 10^3/uL (4.0-10.0)
[2023-02-16 18:35] LABS: C REACTIVE PROTEIN QUANTITATIV < 0.40 MG/DL (<1.0)
[2023-02-16 18:36] LABS: ALBUMIN 3.9 G/DL (3.2-5.2); ALKALINE PHOSPHATASE 65 U/L (46-116); ALT/SGPT 24 U/L (7.0-40); AST/SGOT 24 U/L (<34); BILIRUBIN,TOTAL 0.8 MG/DL (0.3-1.2); BLOOD UREA NITROGEN 13 MG/DL (9-23); CALCIUM LEVEL 10.1 MG/DL (8.3-10.6); CARBON DIOXIDE LEVEL 31 MMOL/L (20-31); CHLORIDE LEVEL 102 MMOL/L (98-107); CREATININE FOR GFR 0.77 MG/DL (0.55-1.30); GLOMERULAR FILTRATION RATE > 60.0 (>32); GLUCOSE, FASTING 83 MG/DL (74-106); POTASSIUM SERUM 4.6 MMOL/L (3.5-5.1); PTH INTACT 150.1 PG/ML (18.5-88.0); SODIUM LEVEL 139 MMOL/L (136-145)
[2023-02-16 18:37] LABS: TOTAL 25(OH) VITAMIN D 45.8 NG/ML (20.0-100.0)
[2023-02-16 18:43] LABS: HEMOGLOBIN A1c 5.3 % (4.0-6.0)
[2023-02-17 14:39] LABS: JAK2 MUTATIONS FOR PATH SENDOU See Pathology Report
[2023-02-18 08:12] LABS: INSULIN LEVEL 11.7 uIU/mL (2.6-24.9)
== END ==
LOC: M SFHCPLAZ 09:32
PROVIDERS: ATTEND Family Medicine
DX: R73.01 Impaired fasting glucose (principal); E55.9 Vitamin D deficiency, unspecified; I50.32 Chronic diastolic (congestive) heart failure; M06.9 Rheumatoid arthritis, unspecified; D75.89 Other specified diseases of blood and blood-forming organs

== ENCOUNTER → 2023-02-28 | Outpatient (CLI) | payer MEDICARE ==
[~2023-02-28] MED LIST changes: +PROHANCE 279.3MG/ML 15ML VIAL As Ordered ONE
== END ==
LOC: M RAD 14:26
PROVIDERS: ATTEND Family Medicine
DX: R27.0 Ataxia, unspecified (principal); G32.81 Cerebellar ataxia in diseases classified elsewhere; G31.9 Degenerative disease of nervous system, unspecified; R90.89 Other abnormal findings on diagnostic imaging of central nervous system; J32.4 Chronic pansinusitis; R93.0 Abnormal findings on diagnostic imaging of skull and head, not elsewhere classified
CPT/HCPCS: 70544; 70553; A9576

== ENCOUNTER → 2023-04-06 | Outpatient (REF) | payer MEDICARE ==
[~2023-04-06] MED LIST changes: -HYDR200T3; -HYDR200T3 PO; +HYDR200T46; +HYDR200T46 PO; -PROHANCE 279.3MG/ML 15ML VIAL As Ordered ONE
[2023-04-06 17:56] LABS: CPK CREATINE PHOSPHOKINASE 60 U/L (34-145)
[2023-04-06 17:59] LABS: THYROID PEROXIDASE ANTIBODY < 28.0 U/ML (<60.0)
== END ==
LOC: M SFHCCLAY 09:59
PROVIDERS: ATTEND Family Medicine
DX: G11.9 Hereditary ataxia, unspecified (principal); Z79.899 Other long term (current) drug therapy

== ENCOUNTER → 2023-04-12 | Outpatient (REF) | payer MEDICARE | LOC: M LABDRAWC 11:22 | PROVIDERS: ATTEND Family Medicine | DX: G11.9 Hereditary ataxia, unspecified (principal) ==

== ENCOUNTER → 2023-05-18 | Outpatient (REF) | payer MEDICARE | LOC: M SFHCCLAY 10:04 | PROVIDERS: ATTEND Internal Medicine Rheumatology | DX: Z53.9 Procedure and treatment not carried out, unspecified reason (principal) ==

== ENCOUNTER → 2023-05-18 | Outpatient (CLI) | payer MEDICARE ==
[2023-05-18 13:24] LABS: ALBUMIN 4.1 G/DL (3.2-5.2); BLOOD UREA NITROGEN 14 MG/DL (9-23); CALCIUM LEVEL 10.5 MG/DL (8.3-10.6); CARBON DIOXIDE LEVEL 32 MMOL/L (20-31); CHLORIDE LEVEL 103 MMOL/L (98-107); GLOMERULAR FILTRATION RATE > 60.0 (>32); GLUCOSE, FASTING 89 MG/DL (74-106); PHOSPHORUS LEVEL 3.2 MG/DL (2.4-5.1); POTASSIUM SERUM 4.3 MMOL/L (3.5-5.1); SODIUM LEVEL 142 MMOL/L (136-145)
== END ==
LOC: M LAB 12:14
PROVIDERS: ATTEND Family Medicine
DX: E72.20 Disorder of urea cycle metabolism, unspecified (principal); M81.0 Age-related osteoporosis without current pathological fracture

== ENCOUNTER 2023-05-25 16:07 | Outpatient (CLI) | payer MEDICARE ==
[~2023-05-25] VITALS: Ht 165.1 cm; Wt 77.2 kg
[2023-05-25 16:10] VITALS: BP 132/60; O2SAT 100
[2023-05-25] MEDS: ZOLEDRONIC ACID 5 MG in IV 1 EA IV ONE (16:35)
[2023-05-25 17:10] VITALS: BP 133/78; O2SAT 99
== END 2023-05-25 17:10 ==
LOC: M INFU 16:07
PROVIDERS: ATTEND Family Medicine
DX: M81.0 Age-related osteoporosis without current pathological fracture (principal)
CPT/HCPCS: 96365; J3489

== ENCOUNTER → 2023-08-23 | Outpatient (CLI) | payer MEDICARE ==
[2023-08-23 12:02] LABS: BASO # 0.1 10^3/uL (0.0-0.2); BASO % 1.5 % (0.0-1.0); EOS # 0.2 10^3/uL (0.0-0.5); EOS % 4.6 % (0.0-3.0); HEMATOCRIT 40.3 % (36.0-47.0); LYMPH # 1.6 10^3/uL (1.5-5.0); LYMPH % 30.2 % (24.0-44.0); MEAN CORPUSCULAR HEMOGLOBIN 32.5 pg (27.0-33.0); MEAN CORPUSCULAR HGB CONC 32.3 g/dl (32.0-36.5); MEAN CORPUSCULAR VOLUME 100.8 fl (80.0-96.0); MONO # 0.5 10^3/uL (0.0-0.8); MONO % 9.3 % (2.0-8.0); NEUTROPHILS # 2.9 10^3/uL (1.5-8.5); PLATELET COUNT, AUTOMATED 257 10^3/uL (150-450); WHITE BLOOD COUNT 5.3 10^3/uL (4.0-10.0)
[2023-08-23 12:20] LABS: ERYTHROCYTE SEDIMENTATION RATE 42 mm/hr (0-30)
[2023-08-23 12:30] LABS: C REACTIVE PROTEIN QUANTITATIV < 0.40 MG/DL (<1.0)
[2023-08-23 12:33] LABS: ALBUMIN 3.6 G/DL (3.2-5.2); ALKALINE PHOSPHATASE 65 U/L (46-116); ALT/SGPT 20 U/L (7.0-40); AST/SGOT 25 U/L (<34); BILIRUBIN,TOTAL 0.7 MG/DL (0.3-1.2); BLOOD UREA NITROGEN 15 MG/DL (9-23); CALCIUM LEVEL 9.7 MG/DL (8.3-10.6); CARBON DIOXIDE LEVEL 30 MMOL/L (20-31); CHLORIDE LEVEL 103 MMOL/L (98-107); CREATININE FOR GFR 0.65 MG/DL (0.55-1.30); GLOMERULAR FILTRATION RATE > 60.0 (>32); GLUCOSE, FASTING 87 MG/DL (74-106); POTASSIUM SERUM 4.2 MMOL/L (3.5-5.1); SODIUM LEVEL 140 MMOL/L (136-145); TOTAL PROTEIN 6.7 G/DL (5.7-8.2)
== END ==
LOC: M WUC 09:09
PROVIDERS: ATTEND Internal Medicine Rheumatology
DX: M06.9 Rheumatoid arthritis, unspecified (principal)

== ENCOUNTER → 2023-09-15 | Outpatient (CLI) | payer MEDICARE | LOC: M WHC 18:12 | PROVIDERS: ATTEND Family Medicine | DX: Z12.39 Encounter for other screening for malignant neoplasm of breast (principal); M81.0 Age-related osteoporosis without current pathological fracture ==

== ENCOUNTER → 2023-11-29 | Outpatient (REF) | payer MEDICARE | LOC: M SFHCRHEU 11:46 | PROVIDERS: ATTEND Internal Medicine Rheumatology | DX: M05.79 Rheumatoid arthritis with rheumatoid factor of multiple sites without organ or systems involvement (principal); R76.8 Other specified abnormal immunological findings in serum; M81.0 Age-related osteoporosis without current pathological fracture; Z79.899 Other long term (current) drug therapy; R53.81 Other malaise; M89.49 Other hypertrophic osteoarthropathy, multiple sites ==

== ENCOUNTER → 2024-03-19 | Outpatient (REF) | payer MEDICARE | LOC: M SFHCPLAZ 16:22 | PROVIDERS: ATTEND Family Medicine | DX: G11.9 Hereditary ataxia, unspecified (principal); R73.01 Impaired fasting glucose; E55.9 Vitamin D deficiency, unspecified; I50.32 Chronic diastolic (congestive) heart failure; E03.9 Hypothyroidism, unspecified ==

== ENCOUNTER → 2024-03-23 | Outpatient (CLI) | payer MEDICARE ==
[~2024-03-23] MED LIST changes: +CALCTAB41 PO; +LEVO25TA5; +PYRI25TA2 PO; +TORS5TAB2
== END ==
LOC: M ONCR 13:47
PROVIDERS: ATTEND General Practice
DX: C25.0 Malignant neoplasm of head of pancreas (principal); R59.9 Enlarged lymph nodes, unspecified; Z71.2 Person consulting for explanation of examination or test findings; Z79.631 Long term (current) use of antimetabolite agent; Z79.82 Long term (current) use of aspirin; Z79.899 Other long term (current) drug therapy

== ENCOUNTER 2024-04-02 13:46 | Outpatient (RCR) | payer MEDICARE | END 2024-04-15 | LOC: M ONCR 13:46 | PROVIDERS: ATTEND General Practice | DX: Z51.0 Encounter for antineoplastic radiation therapy (principal); C25.0 Malignant neoplasm of head of pancreas ==

== ENCOUNTER → 2024-04-13 | Outpatient (CLI) | payer MEDICARE ==
[~2024-04-13] VITALS: Ht 165.1 cm; Wt 68.2 kg
[~2024-04-13] MED LIST changes: +LIDOCAINE 1% MDV 20ML VIAL As Ordered ONE; +LIDOCAINE W/EPINEPHRINE 1% 20ML VIAL As Ordered ONE; +MIDAZOLAM INJ 2MG/2ML VIAL As Ordered ONE; +ceFAZolin 2 GM/D5W 50 ML IV BAG As Ordered ONE; +fentaNYL 100 MCG/2 ML INJECTION As Ordered ONE
[2024-04-13 12:35] VITALS: TEMP 97.5
[2024-04-13] MEDS: ceFAZolin SOD 2 GM in IV 1 EA IV ONE (14:00)
[2024-04-13] MEDS: NS 1,000 ML IV SCH (14:00)
[2024-04-13 15:27] VITALS: BP 108/53; O2SAT 93
== END ==
LOC: M IRPRO 12:29
PROVIDERS: ATTEND Specialist
DX: C25.9 Malignant neoplasm of pancreas, unspecified (principal)
CPT/HCPCS: 36561; 99152; 99153; C1894; J0690; J2250

== ENCOUNTER 2024-04-18 15:24 | Outpatient (RCR) | payer MEDICARE ==
[~2024-04-18 15:24] MED LIST changes: -LIDOCAINE 1% MDV 20ML VIAL As Ordered ONE; -LIDOCAINE W/EPINEPHRINE 1% 20ML VIAL As Ordered ONE; -MIDAZOLAM INJ 2MG/2ML VIAL As Ordered ONE; -ceFAZolin 2 GM/D5W 50 ML IV BAG As Ordered ONE; -fentaNYL 100 MCG/2 ML INJECTION As Ordered ONE
[2024-04-20] MEDS ORDERED: DICL100G10 TOP (19:31)
[2024-04-20] MEDS ORDERED: D-101000 PO (19:31)
[2024-04-20] MEDS ORDERED: VITA100012 PO (19:31)
[2024-04-20] MEDS ORDERED: ACET650T61 PO (19:31)
[2024-04-21] MEDS ORDERED: OMEP-173 PO (11:55)
[2024-04-21] MEDS ORDERED: MIRA33506 PO (11:55)
[2024-04-21] MEDS ORDERED: SENN-52 PO (11:55)
[2024-04-21] MEDS ORDERED: BISA10SU PR (11:55)
[2024-04-21] MEDS ORDERED: LEVO1TAB40 PO (11:55)
[2024-04-21] MEDS ORDERED: BISAC5TA PO (11:55)
== END 2024-05-16 ==
LOC: M ONCR 15:24
PROVIDERS: ATTEND General Practice
DX: Z51.0 Encounter for antineoplastic radiation therapy (principal); C25.0 Malignant neoplasm of head of pancreas

== ENCOUNTER 2024-04-20 10:53 | Inpatient (IN) | payer MEDICARE ==
[~2024-04-20] VITALS: Ht 165.1 cm; Wt 70.1 kg
[2024-04-20 11:44] LABS: BASO % 0.4 % (0.0-1.0); EOS # 0.1 10^3/uL (0.0-0.5); EOS % 0.6 % (0.0-3.0); HEMATOCRIT 37.2 % (36.0-47.0); LYMPH # 0.6 10^3/uL (1.5-5.0); MEAN CORPUSCULAR HGB CONC 32.3 g/dl (32.0-36.5); MEAN CORPUSCULAR VOLUME 99.2 fl (80.0-96.0); MONO # 0.7 10^3/uL (0.0-0.8); NEUTROPHILS # 7.9 10^3/uL (1.5-8.5); NEUTROPHILS % 85.7 % (36.0-66.0); PLATELET COUNT, AUTOMATED 257 10^3/uL (150-450); RED BLOOD COUNT 3.75 10^6/uL (4.00-5.40); WHITE BLOOD COUNT 9.3 10^3/uL (4.0-10.0)
[2024-04-20 11:45] LABS: ABG BASE EXCESS 1.5 (-2.0-2.0); ABG HCO3 25.4 MMOL/L (22.0-26.0); ABG O2 SATURATION 91.5 % (95.0-99.0); ABG PARTIAL PRESSURE CO2 37.6 mmHg (35.0-45.0); ABG PARTIAL PRESSURE O2 60.6 mmHg (75.0-100.0); ABG STANDARD HCO3 25.6 MMOL/L. (22.0-26.0); ABG TOTAL CO2 26.5 MMOL/L (23.0-31.0); ABG pH (ARTERIAL) 7.447 UNITS (7.350-7.450)
[2024-04-20 11:54] LABS: INR 1.04; PROTHROMBIN TIME 13.3 SECONDS (12.5-14.5)
[2024-04-20 12:06] LABS: CK-MB VALUE MASS < 1.0 NG/ML (<3.6)
[2024-04-20 12:09] LABS: ALKALINE PHOSPHATASE 123 U/L (46-116); ALT/SGPT 28 U/L (7.0-40); AST/SGOT 18 U/L (<34); BILIRUBIN,DIRECT 0.3 MG/DL (<0.4); BILIRUBIN,TOTAL 0.8 MG/DL (0.3-1.2); BLOOD UREA NITROGEN 20 MG/DL (9-23); CALCIUM LEVEL 9.8 MG/DL (8.3-10.6); CARBON DIOXIDE LEVEL 28 MMOL/L (20-31); CHLORIDE LEVEL 105 MMOL/L (98-107); CPK CREATINE PHOSPHOKINASE 31 U/L (34-145); GLOMERULAR FILTRATION RATE > 60.0 (>32); GLUCOSE, FASTING 116 MG/DL (74-106); MB/CK RELATIVE INDEX 3.22 (< OR =4); POTASSIUM SERUM 4.2 MMOL/L (3.5-5.1); SODIUM LEVEL 137 MMOL/L (136-145)
[2024-04-20 12:10] LABS: THYROXINE (T4) 7.2 UG/DL (4.5-10.9)
[2024-04-20 12:11] LABS: THYROID STIMULATING HORMONE 1.062 uIU/ML (0.55-4.78)
[2024-04-20] MEDS ORDERED: ISOVUE-370 76% 100ML VIAL As Ordered ONE (12:14)
[2024-04-20] MEDS: NS 1,000 ML IV ONE (13:00)
[2024-04-20] MEDS: SODIUM CHLORIDE 0.9% INJ 10 ML SYR IV PRN (13:00)
[2024-04-20 13:22] LABS: CK-MB VALUE MASS < 1.0 NG/ML (<3.6)
[2024-04-20 13:28] LABS: CPK CREATINE PHOSPHOKINASE 30 U/L (34-145); MB/CK RELATIVE INDEX 3.33 (< OR =4)
[2024-04-20 15:05] LABS: PROCALCITONIN 0.45 ng/ml
[2024-04-20] MEDS: ONDANSETRON 4MG 2ML VIAL IV ONE (15:32)
[2024-04-20] MEDS: cefTRIAXone SOD 1 GM in D5W MINI-BAG PLUS 50 ML IV SCH (18:49)
[2024-04-20] MEDS ORDERED: ACET650T61 PO (19:31)
[2024-04-20] MEDS ORDERED: VITA100012 PO (19:31)
[2024-04-20] MEDS ORDERED: DICL100G10 TOP (19:31)
[2024-04-20] MEDS ORDERED: D-101000 PO (19:31)
[2024-04-20] MEDS ORDERED: HOME MED LIST COMPLETE! XX SCH (19:40)
[2024-04-20] MEDS: DOXYCYCLINE HYCLATE 100 MG in D5W MINI-BAG PLUS 100 ML IV ONE (20:16)
[2024-04-20] MEDS: PANTOPRAZOLE 40MG VIAL IV SCH (22:30)
[2024-04-20 23:50] VITALS: BP 123/63; TEMP 99; O2SAT 91
[2024-04-21] VITALS (7 sets, daily range): BP systolic 105–118; BP diastolic 58–65; TEMP 98.4–100.5; O2SAT 85–93
[2024-04-21] MEDS: CEFEPIME HCL 2 GM in D5W MINI-BAG PLUS 50 ML IV SCH (04:02)
[2024-04-21] MEDS: ACETAMINOPHEN TAB 650MG DOSE (2X325MG) PO PRN (04:08)
[2024-04-21 06:51] LABS: ALBUMIN 2.6 G/DL (3.2-5.2); ALKALINE PHOSPHATASE 104 U/L (46-116); ALT/SGPT 23 U/L (7.0-40); AST/SGOT 18 U/L (<34); BILIRUBIN,TOTAL 0.6 MG/DL (0.3-1.2); BLOOD UREA NITROGEN 13 MG/DL (9-23); CARBON DIOXIDE LEVEL 29 MMOL/L (20-31); CHLORIDE LEVEL 105 MMOL/L (98-107); CREATININE FOR GFR 0.51 MG/DL (0.55-1.30); GLOMERULAR FILTRATION RATE > 60.0 (>32); GLUCOSE, FASTING 92 MG/DL (74-106); POTASSIUM SERUM 4.1 MMOL/L (3.5-5.1); SODIUM LEVEL 136 MMOL/L (136-145); TOTAL PROTEIN 5.3 G/DL (5.7-8.2)
[2024-04-21 08:01] LABS: HEMATOCRIT 34.2 % (36.0-47.0); HEMOGLOBIN 11.1 g/dl (12.0-15.5); MEAN CORPUSCULAR HEMOGLOBIN 32.4 pg (27.0-33.0); MEAN CORPUSCULAR HGB CONC 32.5 g/dl (32.0-36.5); MEAN CORPUSCULAR VOLUME 99.7 fl (80.0-96.0); PLATELET COUNT, AUTOMATED 228 10^3/uL (150-450); RED BLOOD COUNT 3.43 10^6/uL (4.00-5.40); WHITE BLOOD COUNT 10.2 10^3/uL (4.0-10.0)
[2024-04-21] MEDS: SENOKOT S TAB PO SCH (08:57)
[2024-04-21] MEDS: MIRALAX *UNIT DOSE* 17GM PACKET PO PRN (08:57)
[2024-04-21] MEDS: ENOXAPARIN 30MG/0.3ML SYRINGE (J1650 PER 10MG) SC SCH (08:58)
[2024-04-21] MEDS: ONDANSETRON 4MG 2ML VIAL IV PRN (09:42)
[2024-04-21] MEDS: FOLIC ACID 1MG TAB PO SCH (09:42)
[2024-04-21] MEDS: HYDROXYCHLOROQUINE 200 MG TAB PO SCH (10:03)
[2024-04-21] MEDS: METHOTREXATE 2.5MG TAB PO SCH (10:03)
[2024-04-21] MEDS ORDERED: BISACODYL 10MG SUPP PR PRN (11:05)
[2024-04-21] MEDS: BISACODYL 5MG TAB PO SCH (11:38)
[2024-04-21] MEDS ORDERED: LEVO1TAB40 PO (11:55)
[2024-04-21] MEDS ORDERED: OMEP-173 PO (11:55)
[2024-04-21] MEDS ORDERED: MIRA33506 PO (11:55)
[2024-04-21] MEDS ORDERED: BISA10SU PR (11:55)
[2024-04-21] MEDS ORDERED: BISAC5TA PO (11:55)
[2024-04-21] MEDS ORDERED: SENN-52 PO (11:55)
[2024-04-21] MEDS: SODIUM CHLORIDE 0.9% INJ 10 ML SYR IV PRN (16:10)
[2024-04-21] MEDS: ASPIRIN 81MG CHEW TABLET PO SCH (20:01)
[2024-04-22 04:18] VITALS: BP 111/61; TEMP 97; O2SAT 93
[2024-04-22] MEDS: SODIUM CHLORIDE 0.9% INJ 10 ML SYR IV SCH (08:14)
[2024-04-22] MEDS: cefTRIAXone SOD 1 GM in D5W MINI-BAG PLUS 50 ML IV SCH (09:37)
[2024-04-22 12:00] VITALS: BP 110/60; TEMP 98.4; O2SAT 93
[2024-04-22 20:06] VITALS: BP 121/69; TEMP 98.4; O2SAT 92
[2024-04-23 04:20] VITALS: BP_SYST 116; BP_SYST 134; BP_DIAS 59; BP_DIAS 64; TEMP 97.3; TEMP 98.2; O2SAT 100; O2SAT 93
[2024-04-23 06:06] LABS: BASO % 0.6 % (0.0-1.0); EOS # 0.5 10^3/uL (0.0-0.5); HEMATOCRIT 39.1 % (36.0-47.0); HEMOGLOBIN 12.1 g/dl (12.0-15.5); LYMPH # 0.8 10^3/uL (1.5-5.0); LYMPH % 12.5 % (24.0-44.0); MEAN CORPUSCULAR HEMOGLOBIN 31.3 pg (27.0-33.0); MEAN CORPUSCULAR HGB CONC 30.9 g/dl (32.0-36.5); MEAN CORPUSCULAR VOLUME 101.3 fl (80.0-96.0); NEUTROPHILS % 63.1 % (36.0-66.0); PLATELET COUNT, AUTOMATED 256 10^3/uL (150-450); RED BLOOD COUNT 3.86 10^6/uL (4.00-5.40); WHITE BLOOD COUNT 6.4 10^3/uL (4.0-10.0)
[2024-04-23 06:33] LABS: ALBUMIN 2.7 G/DL (3.2-5.2); ALKALINE PHOSPHATASE 105 U/L (46-116); ALT/SGPT 23 U/L (7.0-40); AST/SGOT 21 U/L (<34); BILIRUBIN,TOTAL 0.4 MG/DL (0.3-1.2); BLOOD UREA NITROGEN 8 MG/DL (9-23); CALCIUM LEVEL 9.5 MG/DL (8.3-10.6); CARBON DIOXIDE LEVEL 32 MMOL/L (20-31); CHLORIDE LEVEL 103 MMOL/L (98-107); GLOMERULAR FILTRATION RATE > 60.0 (>32); GLUCOSE, FASTING 102 MG/DL (74-106); POTASSIUM SERUM 3.7 MMOL/L (3.5-5.1); SODIUM LEVEL 140 MMOL/L (136-145); TOTAL PROTEIN 5.8 G/DL (5.7-8.2)
[2024-04-23 12:00] VITALS: BP 91/51; TEMP 98.1; O2SAT 94
[2024-04-23 20:00] VITALS: BP 95/48; TEMP 98.1; O2SAT 97
[2024-04-24 04:00] VITALS: BP 103/48; TEMP 97.9; O2SAT 97
[2024-04-24 05:56] LABS: BASO # 0.1 10^3/uL (0.0-0.2); BASO % 0.7 % (0.0-1.0); EOS # 0.6 10^3/uL (0.0-0.5); EOS % 9.5 % (0.0-3.0); HEMATOCRIT 37.9 % (36.0-47.0); HEMOGLOBIN 11.9 g/dl (12.0-15.5); LYMPH # 1.3 10^3/uL (1.5-5.0); LYMPH % 18.8 % (24.0-44.0); MEAN CORPUSCULAR HEMOGLOBIN 31.2 pg (27.0-33.0); MEAN CORPUSCULAR HGB CONC 31.4 g/dl (32.0-36.5); MEAN CORPUSCULAR VOLUME 99.5 fl (80.0-96.0); MONO # 0.8 10^3/uL (0.0-0.8); NEUTROPHILS % 58.7 % (36.0-66.0); PLATELET COUNT, AUTOMATED 261 10^3/uL (150-450); RED BLOOD COUNT 3.81 10^6/uL (4.00-5.40); WHITE BLOOD COUNT 6.7 10^3/uL (4.0-10.0)
[2024-04-24 12:08] VITALS: BP 102/52; TEMP 98.6; O2SAT 97
[2024-04-24 20:00] VITALS: BP 107/55; TEMP 98.1; O2SAT 94
[2024-04-25 04:00] VITALS: BP 109/55; TEMP 97.3; O2SAT 94
[2024-04-25] MEDS: LR 1,000 ML IV SCH (11:06)
[2024-04-25] MEDS: LORazepam 2 MG/ML 1ML VIAL IV STA (11:07)
[2024-04-25] MEDS: ONDANSETRON 4MG 2ML VIAL IV SCH (11:07)
[2024-04-25 12:00] VITALS: BP 84/50; TEMP 98.1; O2SAT 96
[2024-04-25] MEDS: LACTATED RINGER'S 1000 ML IV ONE (12:06)
[2024-04-25 20:45] VITALS: BP 102/60; TEMP 98.1; O2SAT 93
[2024-04-26 04:00] VITALS: BP 112/54; TEMP 97.5; O2SAT 95
[2024-04-26 06:04] LABS: HEMATOCRIT 35.7 % (36.0-47.0); HEMOGLOBIN 11.2 g/dl (12.0-15.5); MEAN CORPUSCULAR HEMOGLOBIN 31.7 pg (27.0-33.0); MEAN CORPUSCULAR HGB CONC 31.4 g/dl (32.0-36.5); MEAN CORPUSCULAR VOLUME 101.1 fl (80.0-96.0); PLATELET COUNT, AUTOMATED 279 10^3/uL (150-450); RED BLOOD COUNT 3.53 10^6/uL (4.00-5.40); WHITE BLOOD COUNT 7.8 10^3/uL (4.0-10.0)
[2024-04-26 12:00] VITALS: BP 121/58; TEMP 98.8; O2SAT 98
[2024-04-26 20:00] VITALS: BP 137/84; TEMP 98.2; O2SAT 94
[2024-04-27 04:00] VITALS: BP 108/54; TEMP 98.1; O2SAT 94
[2024-04-27 12:00] VITALS: BP 109/59; TEMP 99.1; O2SAT 93
[2024-04-27 20:00] VITALS: BP 104/53; TEMP 98.2; O2SAT 95
[2024-04-28] MEDS: ONDANSETRON 4MG 2ML VIAL IV ONE (01:54)
[2024-04-28 04:00] VITALS: BP 104/54; TEMP 98.1; O2SAT 91
[2024-04-28 12:13] VITALS: BP 102/54; TEMP 97.9; O2SAT 95
[2024-04-28 20:00] VITALS: BP 103/54; TEMP 98.4; O2SAT 93
[2024-04-29] MEDS: ONDANSETRON 4MG 2ML VIAL IV ONE ×2 (01:51→19:26)
[2024-04-29 04:00] VITALS: BP 102/57; TEMP 98.1; O2SAT 95
[2024-04-29 06:54] LABS: HEMATOCRIT 39.4 % (36.0-47.0); HEMOGLOBIN 12.5 g/dl (12.0-15.5); MEAN CORPUSCULAR HEMOGLOBIN 31.6 pg (27.0-33.0); MEAN CORPUSCULAR HGB CONC 31.7 g/dl (32.0-36.5); MEAN CORPUSCULAR VOLUME 99.5 fl (80.0-96.0); PLATELET COUNT, AUTOMATED 333 10^3/uL (150-450); RED BLOOD COUNT 3.96 10^6/uL (4.00-5.40); WHITE BLOOD COUNT 6.7 10^3/uL (4.0-10.0)
[2024-04-29 11:50] VITALS: BP 99/56; TEMP 98.1; O2SAT 92
[2024-04-29 20:59] VITALS: BP 105/58; TEMP 98.8; O2SAT 93
[2024-04-30 04:01] VITALS: BP 118/67; TEMP 97.7; O2SAT 93
[2024-04-30 06:01] VITALS: O2SAT 91
[2024-04-30 12:00] VITALS: TEMP 97.6; O2SAT 90
[2024-04-30] MEDS: PERCOCET 5MG/325MG TAB PO PRN (16:40)
[2024-04-30] MEDS: PANTOPRAZOLE 40MG TAB (PROTONIX) PO SCH (20:24)
[2024-05-01] MEDS: CEFDINIR 300 MG CAP (OMNICEF) PO SCH (09:44)
[2024-05-02] MEDS: LORazepam 0.5 MG TAB PO PRN (01:42)
[2024-05-03] MEDS: ONDANSETRON 4MG TAB PO PRN (05:28)
[2024-05-03] MEDS: ONDANSETRON 4MG ORAL DISINTEGRATING TAB PO SCH (23:06)
[2024-05-04] MEDS ORDERED: PANTOPRAZOLE 40MG TAB (PROTONIX) As Ordered ONE (09:20)
[2024-05-04] MEDS ORDERED: CEFDINIR 300 MG CAP (OMNICEF) As Ordered ONE (09:20)
[2024-05-04] MEDS ORDERED: SENOKOT S TAB As Ordered ONE (09:20)
[2024-05-04] MEDS ORDERED: ONDANSETRON 4MG TAB As Ordered ONE (12:24)
[2024-05-05] MEDS: PROMETHAZINE 25 MG TAB PO PRN (16:44)
[2024-05-06] MEDS ORDERED: ACETAMINOPHEN 650MG SUPP PR PRN (02:15)
[2024-05-06] MEDS ORDERED: BISACODYL 10MG SUPP PR PRN (02:15)
[2024-05-06] MEDS ORDERED: LORazepam 2 MG/ML 1ML VIAL IV PRN (02:15)
[2024-05-06] MEDS ORDERED: HYOSCYAMINE SULFATE 0.125 MG SUBL TABLET PO PRN (02:15)
[2024-05-06] MEDS ORDERED: MORPHINE 2 MG/ML 1ML VIAL IV PRN (02:15)
[2024-05-06] MEDS ORDERED: FLEET ENEMA PR PRN (02:15)
[2024-05-06] MEDS: traZODone 25MG PER 1/2 TABLET PO PRN (02:42)
[2024-05-06] MEDS: LORazepam 1 MG TAB PO PRN (03:39)
[2024-05-08] MEDS: SALIVA SUBSTITUTE(MOUTHKOTE) BTL MT PRN (13:03)
[2024-05-11] MEDS ORDERED: NYSTATIN 100,000 UNITS/GM TOPICAL PWD 15GM TOP PRN (15:30)
[2024-05-11] MEDS: MICONAZOLE 2 % POWDER (DESENEX) TOP SCH (22:13)
[2024-05-12] MEDS: CARBAMIDE PEROXIDE 6.5% OTIC SOLN 15ML AU SCH (15:04)
[2024-05-12] MEDS: CARBAMIDE PEROXIDE 6.5% OTIC SOLN 15ML AU ONE (15:06)
[2024-05-13] MEDS: MOM 30ML SUSPENSION UDC PO PRN (17:46)
[2024-05-15] MEDS: RAMELTEON 8 MG TAB (ROZEREM) PO SCH (21:07)
[2024-05-23] MEDS: MORPHINE 10MG/0.5ML ORAL CONCENTRATE SOLUTION U/D SL PRN (15:39)
[2024-05-23] MEDS: MORPHINE 10MG/0.5ML ORAL CONCENTRATE SOLUTION U/D SL ONE (18:55)
[2024-05-24] MEDS: MORPHINE 10MG/0.5ML ORAL CONCENTRATE SOLUTION U/D SL PRN (11:35)
[2024-05-24] MEDS: SCOPOLAMINE 1MG TRANSDERMAL PATCH TOP PRN (11:35)
== END 2024-05-25 15:15 | disposition expired | DRG 314 ==
LOC: M ED 10:53 → EDBD 10:53 → M ED INP 17:41 → M MSPAV 23:44 → OBSVTOIN 04-23 13:46
PROVIDERS: ADMIT Hospitalist; ATTEND Hospitalist
DX: T80.211A Bloodstream infection due to central venous catheter, initial encounter (principal); J18.9 Pneumonia, unspecified organism; E43 Unspecified severe protein-calorie malnutrition; C25.9 Malignant neoplasm of pancreas, unspecified; R78.81 Bacteremia; D62 Acute posthemorrhagic anemia; J21.9 Acute bronchiolitis, unspecified; D84.9 Immunodeficiency, unspecified; J98.11 Atelectasis; K92.2 Gastrointestinal hemorrhage, unspecified; K56.609 Unspecified intestinal obstruction, unspecified as to partial versus complete obstruction; B96.20 Unspecified Escherichia coli [E. coli] as the cause of diseases classified elsewhere; Z66 Do not resuscitate; I95.9 Hypotension, unspecified; M06.9 Rheumatoid arthritis, unspecified; G47.33 Obstructive sleep apnea (adult) (pediatric); R62.7 Adult failure to thrive; F03.90 Unspecified dementia, unspecified severity, without behavioral disturbance, psychotic disturbance, mood disturbance, and anxiety; Z79.82 Long term (current) use of aspirin; Z79.899 Other long term (current) drug therapy; K59.09 Other constipation; T40.605A Adverse effect of unspecified narcotics, initial encounter